=== PATIENT | female | born 1960 | race Caucasian/White ===

== ENCOUNTER 2020-01-04 15:00 | Observation (INO) | payer BC, SELFPAY ==
[2020-01-04] VITALS (11 sets, daily range): BP systolic 119–200; BP diastolic 83–109; PULSE 76–101; RESP 15–20; TEMP 36.1–36.6; O2SAT 93–97; BMI 37.1
--- NOTE | 2020-01-04 15:01 | XR_ITS ---
WS: [id number] PORTABLE CHEST HISTORY: Chest pain. COMPARISON: 11/13/2015 Curvilinear atelectasis at the medial RIGHT lung base. Atelectasis is probably compressive atelectasi s due to a large hiatal hernia. No pleural effusion or pneumothorax. Cardiac size: Mildly prominent cardiac silhouette. Mediastinum/Aorta: No mediastinal widening. Large hiatal hernia. No osseous abnormality seen. XR/XR chest 1V portable [id number] IMPRESSION: Large hiatal hernia causing partial compressive atelectasis medial RIGHT lower lung field.
--- NOTE | 2020-01-04 15:01 | ECG_ITS ---
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 Measurements Intervals [place] Rate: 101 P: 42 NM: 148 QRS: -29 QRSD: 101 T: 34 QT: 342 QTc: 443 Interpretive Statements SINUS TACHYCARDIA POSSIBLE ANTERIOR MYOCARDIAL INFARCTION [30 ms Q WAVE IN V3/V4, OR R < 0.2 mV IN V4], OF INDETERMINATE AGE INFERIOR MYOCARDIAL INFARCTION [40+ ms Q WAVE AND/OR ST/T ABNORMALITY IN II/aVF], OF INDETERMINATE AGE Compared to ECG 11/13/2015 15:03:50 Myocardial infarct finding now present Sinus rhythm no longer present Electronically Signed On 01-04-2020 16:55:44 CDT by Daljit Erazo M.D. [id number]
--- NOTE | 2020-01-04 15:48 | W.ED.EXTPRO ---
HPI - Extremity Problem General: Chief complaint: Extremity Injury, Upper Stated complaint: cp Time Seen by Provider: 01/04/20 15:37 Source: patient Mode of arrival: ambulatory Limitations: no limitations History of Present Illness: HPI Narrative: 59-year-old female states she has had left shoulder pain that started roughly 45 minutes ago. States it radiated to her left neck along with her left arm and her chest. States the pain was a pressure type pain she got real diaphoretic and short of breath and nausea. States the pain is just not letting up and she only has 1 out of 10 pain. She denies any history of heart disease. She is a diabetic along with high cholesterol and hypertension. She is not a smoker. Associated symptoms: Reports chest pain; Deny fever(s) or rash Review of Systems Const: Denies: fever(s), chills, body aches or change in appetite Eyes: Denies: blurry vision or eye discomfort ENMT: Denies: throat pain or dental pain Card: Reports: chest pain Resp: Reports: dyspnea GI: Reports: nausea : Denies: dysuria Musc: Denies: neck pain or back pain Skin/Breast: Denies: rash Neuro: Denies: headache(s) Psych: Denies: depression Winston/Lymph: Denies: easy bruising All/Imm: Denies: urticaria Physical Exam Const: COMMON NORMALS: no acute distress, patient oriented x3 and healthy appearing HENMT: COMMON NORMALS: normocephalic and atraumatic HEAD & SCALP: normocephalic and atraumatic Eye: COMMON NORMALS: Equal, round and reactive pupils present and EOMs intact bilaterally PUPIL: Yes Equal, round and reactive pupils present Neck/C-Spine: COMMON NORMALS: full ROM and supple Chest: COMMONS NORMALS: normal inspection of the chest and normal palpation of entire chest wall Resp: COMMON NORMALS: normal respiratory effort, No retractions, No use of accessory muscles and clear to auscultation bilaterally AUSCULTATION: clear to auscultation bilaterally Cardio: COMMON NORMALS: regular rate, regular rhythm and No murmurs present (Cardio) RATE: regular rate RHYTHM: regular rhythm GI: COMMON NORMALS: Normal to inspection, nondistended, normoactive bowel sounds present, Soft to palpation, non-tender and no masses PALPATION: Yes Soft to palpation Extremity: COMMON NORMALS: normal to inspection and full ROM Neuro: COMMON NORMALS: patient oriented x3, moves all extremities and no focal motor deficits Psych: COMMON NORMALS: mental status grossly normal, Normal thought process present and cooperative THOUGHT PROCESS: Normal thought process present Skin: COMMON NORMALS: no rashes or lesions noted and no wounds GENERAL SKIN EXAM: no rashes or lesions noted Course Vital Signs: Vital signs: Vital Signs Temperature 96.9 F L 01/04/20 15:06 Pulse Rate 90 01/04/20 17:09 Respiratory Rate 15 01/04/20 17:09 Blood Pressure 182/109 01/04/20 17:09 Pulse Oximetry 96 01/04/20 17:09 MDM - Extremity (Nontraumatic) MDM Narrative: Medical decision making narrative: Jessica presents with chest pain that is since resolved. She is also quite hypertensive as well given her labetalol and will give her another dose. Patient has multiple risk factors. Initial EKG and troponin are normal. I spoke to hospitalist and will admit for ACS rule out due to her risk factors. Lab Data: Labs: Lab Results 01/04/20 01/04/20 01/04/20 Range/Units 16:09 16:09 16:09 WBC 9.2 (4.0-10.0) 10^3/ uL RBC 5.13 (4.1-5.3) 10^6/u L Hgb 15.0 (11.5-15.3) g/dL Hct 47.1 H (37.0-47.0) % MCV 91.8 (81-99) fL MCH 29.2 (28.0-34.0) pg MCHC 31.8 (30.0-36.0) g/dL RDW 12.7 (12.1-15.1) % Plt Count 374 (130-400) 10^3/c mm MPV 10.5 H (7.4-10.4) fL Neut % (Auto) 69.7 % Lymph % (Auto) 19.8 % Kern % (Auto) 5.0 % Eos % (Auto) 4.6 % Baso % (Auto) 0.7 % Neut # (Auto) 6.4 (1.8-7.7) 10^3/u L Lymph # (Auto) 1.8 (0.8-4.8) 10^3/u L Kern # (Auto) 0.5 (0.2-0.9) 10^3/u L Eos # (Auto) 0.4 (0.0-0.8) 10^3/u L Baso # (Auto) 0.1 (0.0-0.1) 10^3/u L Nucleated RBC % (a uto) 0 % Nucleated RBCs # 0.0 /100WBC Sodium 139 (136-145) mmol/L Potassium 3.8 (3.5-5.1) mmol/L Chloride 98 (98-107) mmol/L Carbon Dioxide 24 (22-29) mmol/L Anion Gap 20.8 H (5-19) BUN 12 (6-20) mg/dL Creatinine 0.7 (0.5-0.9) mg/dL GFR Calculation 85.6 L (90-130) mL/min Glucose 311 H (65-115) mg/dL Calculated Osmolal ity 296 H (285-295) mOsm/k g Calcium 9.7 (8.5-10.5) mg/dL Total Bilirubin 0.3 (0.15-1.2) mg/dL AST 43 H (0-32) U/L ALT 38 H (0-33) U/L Alkaline Phosphata se 97 (35-105) IU/L Troponin T Baselin e 6 (0-10) ng/L Total Protein 7.8 (6.6-8.7) g/dL Albumin 4.3 (3.5-5.2) g/dL Globulin 3.5 (1.3-4.6) g/dL Imaging Data^: CXR: Radiologist's impression: [address] [address] XRay Report Signed Patient: Jessica Singh Unit #: [id number] : 1960 Age/Sex: 59 / F ADM Date: 01/04/20 Loc: ER Room/Bed: Attending Dr: Ordering Provider/Ordering MD: Huong Rosario MD Date of Service: 01/04/20 Procedure(s): XR chest 1V portable [id number] Accession Number(s): [id number] Report Number: [id number] WS: [id number] PORTABLE CHEST HISTORY: Chest pain. COMPARISON: 11/13/2015 Curvilinear atelectasis at the medial RIGHT lung base. Atelectasis is probably compressive atelectasis due to a large hiatal hernia. No pleural effusion or pneumothorax. Cardiac size: Mildly prominent cardiac silhouette. Mediastinum/Aorta: No mediastinal widening. Large hiatal hernia. No osseous abnormality seen. XR/XR chest 1V portable [id number] IMPRESSION: Large hiatal hernia causing partial compressive atelectasis medial RIGHT lower lung field. EKG Data^: EKG 1: Attestation: I personally reviewed and interpreted this EKG as follows: EKG interpretation date: 01/04/20 EKG interpretation time: 15:11 Interpretation: sinus tach hr [address] or t wave abnormalities qrs 101 qtc 400 Discharge Plan Discharge Patient Disposition: Admitted As Inpatient Clinical Impression: Chest pain, Hypertension Condition: Stable Referrals: Tavon Marin DO [Primary Care Provider] - Coding Level of Care Code ED Service Coordinator [facility] Facility for Chg Fwd Exam Comprehensive
[2020-01-04] MEDS: aspirin 81 mg Chew Tablet 324 MG PO (15:59)
[2020-01-04 16:23] LABS: Basophils # 0.1 10^3/uL (0.0-0.1); Basophils % 0.7 %; Eosinophils # 0.4 10^3/uL (0.0-0.8); Eosinophils % 4.6 %; Hematocrit 47.1 % (37.0-47.0); Lymphocytes # 1.8 10^3/uL (0.8-4.8); Lymphocytes % 19.8 %; Mean Corpuscular HGB Conc 31.8 g/dL (30.0-36.0); Mean Corpuscular Hemoglobin 29.2 pg (28.0-34.0); Mean Corpuscular Volume 91.8 fL (81-99); Mean Platelet Volume 10.5 fL (7.4-10.4); Monocytes # 0.5 10^3/uL (0.2-0.9); Neutrophils # 6.4 10^3/uL (1.8-7.7); Neutrophils % 69.7 %; Nucleated Red Blood Cells % 0 %; Platelet Count 374 10^3/cmm (130-400); Red Blood Count 5.13 10^6/uL (4.1-5.3); Red Cell Distribution Width 12.7 % (12.1-15.1); White Blood Count 9.2 10^3/uL (4.0-10.0)
[2020-01-04] MEDS: labetalol 5 mg/mL SDV 20mL 10 MG IVP ×2 (16:38→17:22)
[2020-01-04 16:40] LABS: Alanine Aminotransferase 38 U/L (0-33); Albumin Level 4.3 g/dL (3.5-5.2); Alkaline Phosphatase 97 IU/L (35-105); Anion Gap 20.8 (5-19); Aspartate Amino Transferase 43 U/L (0-32); Blood Urea Nitrogen 12 mg/dL (6-20); Calcium 9.7 mg/dL (8.5-10.5); Carbon Dioxide 24 mmol/L (22-29); Chloride 98 mmol/L (98-107); Globulin 3.5 g/dL (1.3-4.6); Glomerular Filtration Rate 85.6 mL/min (90-130); Glucose 311 mg/dL (65-115); Osmolality Calculated 296 mOsm/kg (285-295); Potassium 3.8 mmol/L (3.5-5.1); Sodium 139 mmol/L (136-145); Total Bilirubin 0.3 mg/dL (0.15-1.2); Total Protein 7.8 g/dL (6.6-8.7)
[2020-01-04 16:41] LABS: Troponin(5th) Baseline 6 ng/L (0-10)
--- NOTE | 2020-01-04 17:01 | ECG_ITS ---
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 Measurements Intervals [place] Rate: 71 P: 62 AK: 183 QRS: 0 QRSD: 118 T: 56 QT: 396 QTc: 431 Interpretive Statements SINUS RHYTHM MODERATE INTRAVENTRICULAR CONDUCTION DELAY [110+ ms QRS DURATION] Compared to ECG 01/04/2020 15:11:13 Intraventricular conduction delay now present Sinus tachycardia no longer present Myocardial infarct finding no longer present Electronically Signed On 01-06-2020 17:25:33 CDT by Mery Santos M.D. [id number]
--- NOTE | 2020-01-04 17:19 | PM.HP ---
Providers/Chief Complaint Primary Care Provider: Tavon Marin DO Chief Complaint: cp History of Present Illness Jessica Singh is a 59 year old female with past medical history of hypertension, hypothyroidism, anxiety, former smoker, type 2 diabetes mellitus presented to the ER today with complaining of central chest pain radiating to neck associated with nausea, diaphoresis which became better after coming to the ER and treatment with nitro. She complains of occasional shortness of breath on exertion. She denies any, cough, flulike symptoms complains of heartburn, orthopnea, PND, recent exposure to COVID-19, fevers, postnasal drip. She had similar episode 5 years ago at that time stress test was done and was deemed normal. Patient has a strong family history for coronary artery disease. Her father had a coronary artery bypass grafting times five and started having heart issues in his late 50s. Her mother has had three to four stents placed. Her brother has a pacemaker defibrillator and began having issues with his heart around age 45. There is no family history of stroke. On her mother's side, she has a maternal aunt and cousin who have had breast cancer. Hospital service was called in for admission for chest pain rule out. Review of Systems General: Reports: 10 or more systems reviewed and unremarkable except in HPI and below Const: Denies: fever(s), chills, body aches, change in appetite, malaise, night sweats, diaphoresis, change in sleep pattern, daytime sleepiness or snoring Eyes: Denies: change in vision, blurry vision, photophobia, eye discomfort or eye discharge ENMT: Denies: throat pain, enlarged tonsils, hoarseness, mouth pain, oral sores, dry mouth, tinnitus, nasal congestion or post nasal drip Card: Reports: chest pain and dyspnea on exertion; Denies: palpitations, irregular heart rhythm, edema, swelling of feet/ankles, lightheadedness, syncope, pre-syncope, orthopnea, leg pain with exertion or acrocyanosis Resp: Denies: dyspnea, productive cough, non-productive cough, wheezing, stridor, pain on inspiration, change in phlegm color, hemoptysis or chest congestion GI: Denies: abdominal pain, nausea, vomiting, hematemesis, coffee ground emesis, dysphagia, heartburn, diarrhea, constipation, bloating, GI cramping, change in bowel habits, pain on defecation, hematochezia or melena : Denies: flank pain, dysuria, urinary frequency, urinary urgency, urinary hesitancy, nocturia or hematuria Musc: Denies: neck pain, back pain, extremity pain, joint pain, joint swelling, joint redness, joint stiffness or limited range of motion Neuro: Denies: headache(s), numbness in extremities, weakness in extremities, sensory changes, lack of coordination, difficulty walking, frequent falls, dizziness, vertigo, confusion, Slurred speech present, difficulty communicating thoughts or seizure-like activity Psych: Denies: anxiety, depression, mood swings, panic attacks, hopelessness or irritability Endo: Denies: polyuria, polydipsia, tired all the time, cold intolerance, excessive sweating, flushing or heat intolerance Winston/Lymph: Denies: easy bruising or easy bleeding All/Imm: Denies: tongue swelling, facial swelling or acute wheezing Medications/Allergies Home Medications Medication Instructions Recorded Confirmed Last Taken Type amitriptyline 10 mg PO BID 01/04/20 01/04/20 01/04/20 History aspirin 81 mg PO DAILY 01/04/20 01/04/20 01/04/20 History atorvastatin 80 mg PO DAILY 01/04/20 01/04/20 Unknown History citalopram [Celexa] 40 mg PO DAILY 01/04/20 01/04/20 01/04/20 History dulaglutide [Trulicity] See Rx Instructions .ROUTE .COMPLEX 01/04/20 01/04/20 12/28/19 History levothyroxine 150 mcg PO DAILY 01/04/20 01/04/20 01/04/20 History lovastatin 40 mg PO DAILY 01/04/20 01/04/20 01/04/20 History metoprolol succinate 50 mg PO DAILY 01/04/20 01/04/20 01/04/20 History triamterene-hydrochlorothiazid 1 tab PO DAILY 01/04/20 01/04/20 01/04/20 History Allergies Allergy/AdvReac Type Severity Reaction Status Date / Time Penicillins Allergy Unknown Verified 01/04/20 16:14 Sulfa (Sulfonamide Allergy Unknown Verified 01/04/20 16:14 Antibiotics) antiobiotic Allergy Severe Unknown Uncoded 01/04/20 15:13 PFSH Acute PFSH: Medical History (Updated 01/04/20 @ 17:21 by Roosevelt Torres MD) Dyslipidemia Hiatal hernia Hypertension Hypothyroidism Surgical History (Updated 01/04/20 @ 17:21 by Roosevelt Torres MD) H/O: hysterectomy History of appendectomy Family History (Updated 01/04/20 @ 17:22 by Roosevelt Torres MD) Other CAD (coronary artery disease) Diabetes Hypertension Social History (Updated 01/04/20 @ 17:22 by Roosevelt Torres MD) Smoking and tobacco status: former smoker Alcohol intake: never Substance/Drug Use: never Housing: House Vitals/I&O/Wt Last Vital Signs Temp 96.9 F L 01/04/20 15:06 Pulse 90 01/04/20 17:09 Resp 15 01/04/20 17:09 BP 182/109 01/04/20 17:09 Pulse Ox 96 01/04/20 17:09 Weight last 48 hrs Weight 104.326 kg Physical Exam Narrative: EXAM NARRATIVE: General: No acute distress, AO x3 HEENT: PERRLA, pupils bilaterally equal and reactive Chest: Normal vesicular breath sounds, no added sounds, equal good air entry bilaterally CVS: S1-S2 regular, no murmurs, no tachycardia, no gallops, no rubs Abdomen: Soft, nontender, no organomegaly, bowel sounds present Neuro: No focal deficits, no facial deformity, AO x3, power 5/5 in all limbs Data : 01/04/20 16:09 01/04/20 16:09 A&P Assessment and plan (1) Hypertension: Status: Acute (2) Chest pain: Status: Acute Qualifiers: Chest pain type: unspecified Qualified Code(s): R07.9 - Chest pain, unspecified (3) Dyslipidemia: Status: Acute (4) Hypothyroidism: Status: Acute Additional A&P Information Chest pain: Patient has a typical history. Significant family history and personal history of hypertension, hypothyroidism, dyslipidemia and former smoker. Check lipid panel, TSH, HbA1c. Patient already given aspirin in the ER. Cycle troponins. Oxygen supplementation keeping saturation 92%. Nitroglycerin sublingual as needed. Continue with aspirin, statin for now. Continue with metoprolol. N.p.o. after midnight for stress test tomorrow morning. Echocardiogram for regional motion abnormality and EF. Hypertension: Hypertensive in the ER and given labetalol push. Goal blood pressure 140/90 mmHg. For now continue with home dose of metoprolol, triamterene hydrochlorothiazide. If required can go higher on the medications. Type 2 diabetes mellitus: Insulin sliding scale at moderate dose. Continue chronic medication like amitriptyline and Celexa. Full code. Cardiac carb consistent diet. N.p.o. after midnight Lovenox for DVT prophylaxis Attestations Medical Necessity Statement*: Under observation for less than 2 midnights for chest pain rule out Time Spent in Patient Care: Greater than 35 minutes (>than 50% of time spent in counselling and/or direct pt care on unit). Coding Level of Care Code Acute Foundation Drill Operator for Don Quinn Diagnoses Hypertension I10 Chest pain R07.9 Chest pain type: unspecified Dyslipidemia E78.5 Hypothyroidism E03.9
[2020-01-04 18:18] LABS: Iron 89 ug/dL (37-145); NT Pro B Type Natriuretic Pept 26 pg/mL (0-125); Percent Saturation 22.9 % (20-50); Thyroid Stimulating Hormone 11.27 uIU/mL (0.27-4.20); Total Iron Binding Capacity 387 mcg/dl; Unsaturated Iron Binding 298 ug/dL (112-347)
[2020-01-04 18:34] LABS: Amphetamines Screen Urine Negative (Negative); Barbiturates Screen Urine Negative (Negative); Benzodiazepines Screen Urine Negative (Negative); Cocaine Screen Urine Negative (Negative); Opiate Screen Urine Negative (Negative); PCP Screen Urine Negative (Negative); THC Screen Urine Negative (Negative)
[2020-01-04 18:37] LABS: Troponin 5 2HR Delta 0 ABS# (0-10)
--- NOTE | 2020-01-04 21:01 | ECG_ITS ---
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 Measurements Intervals [place] Rate: 71 P: 66 [place]: 177 QRS: 27 QRSD: 116 T: 63 QT: 417 QTc: 455 Interpretive Statements SINUS RHYTHM MODERATE INTRAVENTRICULAR CONDUCTION DELAY [110+ ms QRS DURATION] Compared to ECG 01/04/2020 18:00:46 No significant changes Electronically Signed On 01-06-2020 17:25:16 CDT by Mery Santos M.D. [id number]
--- NOTE | 2020-01-04 22:10 | ECG_ITS ---
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 Interpretive Statements NAME OF STUDY: LEXISCAN SESTAMIBI STRESS TEST INDICATION: Unstable Angina PROCEDURE: At the baseline, the blood pressure was 140/105 mmHg, oxygen saturation 93% with a heart rate of 64 bpm. The electrocardiogram showed normal sinus rhythm, normal axis with poor anterior R wave progression. The Lexiscan was infused over a period of 20 seconds. A total of 0.4 milligrams of Lexiscan was infused. The stress phase was continued for a total of 5 minutes. Heart rate at the end of the stress phase was 82 bpm, oxygen saturation 95% with a blood pressure of 169/95 mmHg. The EKG at the peak infusion revealed sinus rhythm with no significant ST-T wave changes. Sestamibi was injected 20 seconds after the Lexiscan infusion. Blood pressure at the end of the recovery phase was 157/92 mmHg, oxygen saturation 93% with a heart rate of 79 beats per minute. CONCLUSION: 1. No significant EKG changes with the LexiScan infusion. 2. No LexiScan induced chest pain or cardiac arrhythmia. 3. Normal blood pressure and heart rate response. 4. Sestamibi/sestamibi perfusion scan pending; see separate report. Electronically Signed On 01-05-2020 17:23:08 CDT by Mery Santos M.D. [id number]
[2020-01-04 22:33] LABS: Troponin 5 6HR Delta 0 ng/L (0-12)
[2020-01-04 22:58] LABS: Glucose Point of Care 144 mg/dL (70-110)
[2020-01-04] MEDS: enoxaparin 40 mg/0.4 mL Syringe SUBCUT (23:08)
[2020-01-04] MEDS: famotidine 20 mg/2 mL INJ IVP (23:08)
[2020-01-05] VITALS (10 sets, daily range): BP systolic 112–154; BP diastolic 72–98; PULSE 58–83; RESP 18; TEMP 36.4–36.8; O2SAT 93–96
[2020-01-05 05:23] LABS: Basophils # 0.1 10^3/uL (0.0-0.1); Basophils % 0.8 %; Eosinophils # 0.5 10^3/uL (0.0-0.8); Eosinophils % 5.8 %; Hematocrit 44.6 % (37.0-47.0); Lymphocytes # 2.4 10^3/uL (0.8-4.8); Lymphocytes % 31.6 %; Mean Corpuscular HGB Conc 31.4 g/dL (30.0-36.0); Mean Corpuscular Hemoglobin 28.9 pg (28.0-34.0); Mean Corpuscular Volume 92.1 fL (81-99); Mean Platelet Volume 10.5 fL (7.4-10.4); Monocytes # 0.5 10^3/uL (0.2-0.9); Monocytes % 6.9 %; Neutrophils # 4.2 10^3/uL (1.8-7.7); Neutrophils % 54.6 %; Nucleated Red Blood Cells % 0 %; Platelet Count 351 10^3/cmm (130-400); Red Blood Count 4.84 10^6/uL (4.1-5.3); Red Cell Distribution Width 12.9 % (12.1-15.1); White Blood Count 7.7 10^3/uL (4.0-10.0)
[2020-01-05 06:01] LABS: Alanine Aminotransferase 35 U/L (0-33); Albumin Level 4.1 g/dL (3.5-5.2); Alkaline Phosphatase 83 IU/L (35-105); Anion Gap 17.2 (5-19); Aspartate Amino Transferase 37 U/L (0-32); Blood Urea Nitrogen 11 mg/dL (6-20); Calcium 10.1 mg/dL (8.5-10.5); Carbon Dioxide 27 mmol/L (22-29); Chloride 100 mmol/L (98-107); Globulin 2.9 g/dL (1.3-4.6); Glomerular Filtration Rate 102.3 mL/min (90-130); Glucose 164 mg/dL (65-115); Osmolality Calculated 290 mOsm/kg (285-295); Potassium 4.2 mmol/L (3.5-5.1); Sodium 140 mmol/L (136-145); Total Bilirubin 0.3 mg/dL (0.15-1.2)
[2020-01-05 06:03] LABS: Estmated Average Glucose 206; Hemoglobin A1C 8.8 % (4.0-6.0)
[2020-01-05 06:07] LABS: Chol HDL Ratio 6.49 mg/dL (0.0-4.40); Cholesterol 240 mg/dL (0-200); HDL Cholesterol 37 mg/dL (60-100); LDL Cholesterol Calculated 147 mg/dL (50-129); Triglycerides 279 mg/dL (0-150); VLDL Cholestrol Calculation 56 mg/dL (0-30)
[2020-01-05 06:39] LABS: Glucose Point of Care 177 mg/dL (70-110)
--- NOTE | 2020-01-05 09:54 | PC.CHAP ---
Pastoral Care Encounter/Spiritual Assessment Type of Contact [] Declined needle valve operator visit [] Patient/Family/Request visit [] Outpatient visit [] Follow-up visit [] Physician referral [] Code/Alert [x Routine visit [] Staff referral [] Actively dying [x] Patient sleeping [] Family support [] [] Out of room [] Palliative care [] [] Receiving care in room [] Pre-surgical visit [] Trauma [] Long length of stay [] ICU visit [] Other: Relational/Emotional Strength [] Patient feels connected with others/family/visitors/staff [] Distress [] Loneliness/isolation [] Abandonment Spirituality of Patient [] Person of Tania [] Attends Buddhist of their Tania [] Believes in Prayer [] Reads Bible or Baptism materials [] There are Spiritual issues to be addressed Production Editor Interventions [] Prayer [] Active listening [] Non-anxious presence [] Spiritual/emotional support [] Crisis/trauma care [] Spiritual counseling [] Bereavement support [] Provided bereavement packet [] Provided Bible/devotional materials [] Provided toy/stuffed animal, coloring book to patient or family member [] Provided Communion [] Anointing/[place] [] Salvation [xx] Completed spiritual assessment [] Other: Impact on Illness or Injury [] Angry [] Fearful [] Anxious [] Often cries [] Exhaustion [] Unable to work [] Unable to attend nondenominational [] Unable to walk/stand [] Unable to read [] Unable to drive [] Unable to eat/drink [] Unable to sleep [] Unable to be with family [] Patient intubated [] Other: Summary Time spent with patient
[2020-01-05] MEDS: metoprolol succinate ER (24 HR) 50 mg Tablet PO (10:12)
[2020-01-05 11:43] LABS: Glucose Point of Care 148 mg/dL (70-110)
--- NOTE | 2020-01-05 12:14 | PC.NURSE ---
Patient down for stress test at this time.
--- NOTE | 2020-01-05 12:38 | SUR.PREOP ---
Patient reports no pain or discomfort prior to the start of the procedure.
[2020-01-05] MEDS: regadenoson 0.4 Mg/5 ml Syringe IVP (12:39)
[2020-01-05 16:05] LABS: Free T4 Free Thyroxine 1.04 ng/dL (0.82-1.77); T3 Free 2.2 PG/ML (2.0-4.4)
[2020-01-05 17:21] LABS: Glucose Point of Care 154 mg/dL (70-110)
--- NOTE | 2020-01-05 17:29 | USCV_ITS ---
Jessica Singh Age: 59 Gender: F : 1960 Exam Date: 01/05/2020 07:59 Ordering Phys: Roosevelt Torres MD Technologist: Dolores Stern Exam Location: [facility] [place] Indication: EF UA HTN BP: 127 / 85 HR: 65 Rhythm: Sinus Technical Quality: Adequate MEASUREMENTS (Male / Female) Normal Values 2D ECHO LV Diastolic Diameter PLAX 3.7 cm 4.2 - 5.9 / 3.9 - 5.3 cm LV Systolic Diameter PLAX 2.4 cm LV Chamber Size 3.4 cm IVS Diastolic Thickness 1.5 cm 0.6 - 1.0 / 0.6 - 0.9 cm IVS Systolic Thickness 1.8 cm LVPW Diastolic Thickness 1.0 cm 0.6 - 1.0 / 0.6 - 0.9 cm LVPW Systolic Thickness 1.6 cm RV Chamber Size 2.3 cm LVOT Diameter 2.0 cm LV Ejection Fraction 2D Teich 65.4 % LV Ejection Fraction MOD 2C 60.4 % LV Ejection Fraction 2C AL 61.2 % LA Diameter 2.2 cm LA Width 3.5 cm LA Height 4.4 cm RA Width 2.7 cm RA Height 4.3 cm Aorta at Sinotubular Diameter 3.1 cm M-MODE LV Diastolic Diameter MM 4.2 cm 4.2 - 5.9 / 3.9 - 5.3 cm LV Systolic Diameter MM 2.6 cm LV Ejection Fraction MM Teich 68.7 % IVS Diastolic Thickness MM 1.3 cm 0.6 - 1.0 / 0.6 - 0.9 cm IVS Systolic Thickness MM 1.5 cm LVPW Diastolic Thickness MM 1.1 cm 0.6 - 1.0 / 0.6 - 0.9 cm LVPW Systolic Thickness MM 1.5 cm RV Diastolic Diameter MM 1.7 cm Aortic Annulus Diameter 3.1 cm LA Ao Ratio MM 0.7 MV E Point Septal Separation 0.2 cm DOPPLER AV Peak Velocity 145.0 cm/s LVOT Peak Velocity 107.0 cm/s AV Area Cont Eq vti 2.3 cm squared AV Area Cont Eq pk 2.3 cm squared MV Area PHT 3.1 cm squared Mitral E to A Ratio 0.9 MV E' Velocity 8.0 cm/s Mitral E to MV E' Ratio 12.8 Mitral E to LV E' Lateral Ratio 12.0 Mitral E to LV E' Septal Ratio 13.8 TR Peak Velocity 179.0 cm/s TR Peak Gradient 12.8 mmHg TR Mean Velocity 136.1 cm/s TR Mean Gradient 8.2 mmHg TR Velocity Time Integral 53.9 cm TV Peak E Velocity 48.0 cm/s Right Atrial Pressure 5.0 mmHg Pulmonary Artery Systolic Pressu 17.8 mmHg PV Peak Velocity 57.0 cm/s RV Acceleration Time 0.1 s RV Ejection Time 0.3 s RV AcT/ET 0.4 FINDINGS Left Ventricle Normal left ventricular size, systolic function and wall thickness, with no regional wall motion abnormalities. Left ventricular ejection fraction is estimated at 60 %. Normal diastolic function. Right Ventricle Normal right ventricular size and systolic function. Right ventricular systolic pressure 17.8 mmHg. Right Atrium Normal right atrial size. Right atrial pressure estimated at 3 mmHg. Left Atrium Normal left atrial size. Mitral Valve Structurally normal mitral valve. Trace mitral valve regurgitation. Aortic Valve Aortic valve not well visualized. No aortic valve stenosis. No aortic valve regurgitation. Tricuspid Valve Tricuspid valve not well visualized. Trace tricuspid valve regurgitation. Pulmonic Valve Pulmonic valve not well visualized. Trace pulmonary valve regurgitation. Pericardium No pericardial effusion. Aorta Normal size aortic root and proximal ascending aorta. CONCLUSIONS 1. Normal left ventricular size, systolic function and wall thickness, with no regional wall motion abnormalities. Left ventricular ejection fraction is estimated at 60 %. Normal diastolic function. 2. Normal right ventricular size and systolic function. 3. Right atrial pressure estimated at 3 mmHg. 4. Normal pulmonary artery pressure. 5. No prior similar studies to compare. Mery Santos MD (Electronically Signed) Final Date: 05 January 2020 17:30 S
--- NOTE | 2020-01-05 17:33 | P.DS_ITS ---
Discharge Providers Date of Admission: 01/04/20 17:14 Date of Discharge: January 05, 2020 Attending Provider at Admission: Roosevelt Torres MD Attending Provider at Discharge: Roosevelt Torres MD Primary Care Provider: Tavon Marin DO Diagnoses at Discharge Discharge Diagnosis (1) Hypertension: Status: Acute (2) Chest pain: Status: Acute Qualifiers: Chest pain type: unspecified Qualified Code(s): R07.9 - Chest pain, unspecified (3) Dyslipidemia: Status: Acute (4) Hypothyroidism: Status: Acute Reason for Visit 2 Reason for Visit: cp Hospital Course Discharge Summary: Jessica Singh is a 59 year old female with past medical history of hypertension, hypothyroidism, anxiety, former smoker, type 2 diabetes mellitus presented to the ER today with complaining of central chest pain radiating to neck associated with nausea, diaphoresis which became better after coming to the ER and treatment with nitro. She complains of occasional shortness of breath on exertion. She denies any, cough, flulike symptoms complains of heartburn, orthopnea, PND, recent exposure to COVID-19, fevers, postnasal drip. She had similar episode 5 years ago at that time stress test was done and was deemed normal. Patient has a strong family history for coronary artery disease. Her father had a coronary artery bypass grafting times five and started having heart issues in his late 50s. Her mother has had three to four stents placed. Her brother has a pacemaker defibrillator and began having issues with his heart around age 45. There is no family history of stroke. On her mother's side, she has a maternal aunt and cousin who have had breast cancer. She was admitted to the hospital for chest pain rule out. She did not have repeat symptoms while hospitalized. Underwent stress test on January 05, 2020 which is negative for active ischemia. She underwent echocardiogram which showed an EF of 60% and normal diastolic dysfunction without any structural abnormality. Blood work showed deranged lipid panel along with elevated HbA1c. She states she is not eating statins as the tablets are big in size and she is not able to swallow. She was counseled and educated regarding importance of statins given her significant family history and personal history. She verbalized understanding. For her elevated HbA1c along with Trulicity sitagliptin has been added and she has allergy to metformin with diarrhea. TSH was elevated free T3 and T4 were normal limits so levothyroxine can continue the same dose. She is been discharged hemodynamically stable condition at her baseline. Physical Exam Narrative: EXAM NARRATIVE: General: No acute distress, AO x3 HEENT: PERRLA, pupils bilaterally equal and reactive Chest: Normal vesicular breath sounds, no added sounds, equal good air entry bilaterally CVS: S1-S2 regular, no murmurs, no tachycardia, no gallops, no rubs Abdomen: Soft, nontender, no organomegaly, bowel sounds present Neuro: No focal deficits, no facial deformity, AO x3, power 5/5 in all limbs Discharge Data Data Completed and Pending: Completed Studies During Hospitalization Category Date Time Status Sestamibi Stress Test Request Routi ne Exams 01/04/20 22:10 Completed XR chest 1V zulema ble [id number] Stat Exams 01/04/20 15:01 Completed NM jessenia perf SPECT r/s* [id number] Routin e Nuc Med 01/05/20 22:10 Completed CV echo complete* [id number] Routine Ultrasound 01/05/20 17:29 Completed Labs from last 24 hours 01/05/20 01/05/20 01/05/20 17:18 11:31 06:29 WBC RBC Hgb Hct MCV MCH MCHC RDW Plt Count MPV Neut % (Auto) Lymph % (Auto) Elbert % (Auto) Eos % (Auto) Baso % (Auto) Neut # (Auto) Lymph # (Auto) Elbert # (Auto) Eos # (Auto) Baso # (Auto) Nucleated RBC % (a uto) Nucleated RBCs # Sodium Potassium Chloride Carbon Dioxide Anion Gap BUN Creatinine GFR Calculation Glucose POC Glucose 154 148 177 Estimat Average Gl ucose Hemoglobin A1c Calculated Osmolal ity Calcium Iron TIBC % Saturation Unsat Iron Binding Total Bilirubin AST ALT Alkaline Phosphata se Troponin I 6 Hour Troponin I Hi Sens Del Troponin T 120 Min [place] Delta Troponin T NT-Pro-B Natriuret Pep Total Protein Albumin Globulin Triglycerides Cholesterol LDL Cholesterol, C alc Total VLDL Cholest cande HDL Cholesterol Cholesterol/HDL Ra david TSH Free T4 Free T3 Urine Opiates Scre en Ur Barbiturates Sc reen Ur Phencyclidine S crn Ur Amphetamines Sc reen U Benzodiazepines Scrn Urine Cocaine Scre en U Marijuana (THC) Screen 01/05/20 01/05/20 01/05/20 05:11 04:30 04:30 WBC 7.7 RBC 4.84 Hgb 14.0 Hct 44.6 MCV 92.1 MCH 28.9 MCHC 31.4 RDW 12.9 Plt Count 351 MPV 10.5 H Neut % (Auto) 54.6 Lymph % (Auto) 31.6 Elbert % (Auto) 6.9 Eos % (Auto) 5.8 Baso % (Auto) 0.8 Neut # (Auto) 4.2 Lymph # (Auto) 2.4 Elbert # (Auto) 0.5 Eos # (Auto) 0.5 Baso # (Auto) 0.1 Nucleated RBC % (a uto) 0 Nucleated RBCs # 0.0 Sodium 140 Potassium 4.2 Chloride 100 Carbon Dioxide 27 Anion Gap 17.2 BUN 11 Creatinine 0.6 GFR Calculation 102.3 Glucose 164 H POC Glucose Estimat Average Gl ucose Hemoglobin A1c Calculated Osmolal ity 290 Calcium 10.1 Iron TIBC % Saturation Unsat Iron Binding Total Bilirubin 0.3 AST 37 H ALT 35 H Alkaline Phosphata se 83 Troponin I 6 Hour Troponin I Hi Sens Del Troponin T 120 Min [place] Delta Troponin T NT-Pro-B Natriuret Pep Total Protein 7.0 Albumin 4.1 Globulin 2.9 Triglycerides Cholesterol LDL Cholesterol, C alc Total VLDL Cholest cande HDL Cholesterol Cholesterol/HDL Ra david TSH Free T4 1.04 Free T3 2.2 Urine Opiates Scre en Ur Barbiturates Sc reen Ur Phencyclidine S crn Ur Amphetamines Sc reen U Benzodiazepines Scrn Urine Cocaine Scre en U Marijuana (THC) Screen 01/05/20 01/05/20 01/04/20 04:30 04:30 22:55 WBC RBC Hgb Hct MCV MCH MCHC RDW Plt Count MPV Neut % (Auto) Lymph % (Auto) Elbert % (Auto) Eos % (Auto) Baso % (Auto) Neut # (Auto) Lymph # (Auto) Elbert # (Auto) Eos # (Auto) Baso # (Auto) Nucleated RBC % (a uto) Nucleated RBCs # Sodium Potassium Chloride Carbon Dioxide Anion Gap BUN Creatinine GFR Calculation Glucose POC Glucose 144 Estimat Average Gl ucose 206 Hemoglobin A1c 8.8 H Calculated Osmolal ity Calcium Iron TIBC % Saturation Unsat Iron Binding Total Bilirubin AST ALT Alkaline Phosphata se Troponin I 6 Hour Troponin I Hi Sens Del Troponin T 120 Min [place] Delta Troponin T NT-Pro-B Natriuret Pep Total Protein Albumin Globulin Triglycerides 279 H Cholesterol 240 H LDL Cholesterol, C alc 147 H Total VLDL Cholest cande 56 H HDL Cholesterol 37 L Cholesterol/HDL Ra david 6.49 H TSH Free T4 Free T3 Urine Opiates Scre en Ur Barbiturates Sc reen Ur Phencyclidine S crn Ur Amphetamines Sc reen U Benzodiazepines Scrn Urine Cocaine Scre en U Marijuana (THC) Screen 01/04/20 01/04/20 01/04/20 22:01 18:07 17:55 WBC RBC Hgb Hct MCV MCH MCHC RDW Plt Count MPV Neut % (Auto) Lymph % (Auto) Elbert % (Auto) Eos % (Auto) Baso % (Auto) Neut # (Auto) Lymph # (Auto) Elbert # (Auto) Eos # (Auto) Baso # (Auto) Nucleated RBC % (a uto) Nucleated RBCs # Sodium Potassium Chloride Carbon Dioxide Anion Gap BUN Creatinine GFR Calculation Glucose POC Glucose Estimat Average Gl ucose Hemoglobin A1c Calculated Osmolal ity Calcium Iron TIBC % Saturation Unsat Iron Binding Total Bilirubin AST ALT Alkaline Phosphata se Troponin I 6 Hour 6.00 Troponin I Hi Sens Del 0 Troponin T 120 Min [place] 6.00 Delta Troponin T 0 NT-Pro-B Natriuret Pep Total Protein Albumin Globulin Triglycerides Cholesterol LDL Cholesterol, C alc Total VLDL Cholest cande HDL Cholesterol Cholesterol/HDL Ra david TSH Free T4 Free T3 Urine Opiates Scre en Negative Ur Barbiturates Sc reen Negative Ur Phencyclidine S crn Negative Ur Amphetamines Sc reen Negative U Benzodiazepines Scrn Negative Urine Cocaine Scre en Negative U Marijuana (THC) Screen Negative 01/04/20 01/04/20 16:09 16:09 WBC RBC Hgb Hct MCV MCH MCHC RDW Plt Count MPV Neut % (Auto) Lymph % (Auto) Elbert % (Auto) Eos % (Auto) Baso % (Auto) Neut # (Auto) Lymph # (Auto) Elbert # (Auto) Eos # (Auto) Baso # (Auto) Nucleated RBC % (a uto) Nucleated RBCs # Sodium Potassium Chloride Carbon Dioxide Anion Gap BUN Creatinine GFR Calculation Glucose POC Glucose Estimat Average Gl ucose Hemoglobin A1c Calculated Osmolal ity Calcium Iron 89 TIBC 387 % Saturation 22.9 Unsat Iron Binding 298 Total Bilirubin AST ALT Alkaline Phosphata se Troponin I 6 Hour Troponin I Hi Sens Del Troponin T 120 Min [place] Delta Troponin T NT-Pro-B Natriuret Pep 26 Total Protein Albumin Globulin Triglycerides Cholesterol LDL Cholesterol, C alc Total VLDL Cholest cande HDL Cholesterol Cholesterol/HDL Ra david TSH 11.27 H Free T4 Free T3 Urine Opiates Scre en Ur Barbiturates Sc reen Ur Phencyclidine S crn Ur Amphetamines Sc reen U Benzodiazepines Scrn Urine Cocaine Scre en U Marijuana (THC) Screen Addt'l Data from Hospital Stay: [facility] 02/17/2020 IMPRESSIONS 1. Myocardial perfusion imaging is normal. 2. Overall left ventricular systolic function is normal without regional wall motion abnormalities. 3. The left ventricular ejection fraction is normal with a value of 74%. 4. This study suggests a low likelihood of angiographically significant coronary artery disease. Vitals: Last Vital Signs Temp 98.0 F 01/05/20 15:27 Pulse 68 01/05/20 15:27 Resp 18 01/05/20 15:27 BP 121/72 01/05/20 15:27 Pulse Ox 95 01/05/20 15:27 Discharge Plan Discharge Patient Disposition: Home, Self-Care Condition: Stable Prescriptions: New sitagliptin 100 mg tablet 100 mg PO DAILY Qty: 30 RF: 0 Continued atorvastatin 80 mg tablet 80 mg PO DAILY RF: 0 Celexa 40 mg tablet 40 mg PO DAILY RF: 0 aspirin 81 mg tablet,delayed release (DR/EC) 81 mg PO DAILY RF: 0 amitriptyline 10 mg tablet 10 mg PO BID RF: 0 levothyroxine 150 mcg tablet 150 mcg PO DAILY RF: 0 triamterene-hydrochlorothiazid 37.5-25 mg tablet 1 tab PO DAILY RF: 0 Trulicity 1.5 mg/0.5 mL pen injector See Rx Instructions .ROUTE .COMPLEX RF: 0 Changed metoprolol succinate 50 mg tablet extended release 24 hr 75 mg PO DAILY Qty: 45 RF: 0 Discontinued lovastatin 40 mg tablet 40 mg PO DAILY RF: 0 Discharge Orders: Discharge Order (Routine); Ordered 01/05/20 Ordered By: Roosevelt Torres Referrals: Tavon Marin DO [Primary Care Provider] - 1 month (PLEASE CALL FOR APPOINTMENT) Discharge Diet: Cardiac and Diabetic Discharge Activity: Resume usual activity Activity Restrictions/Additional Instructions: Please take your medications as prescribed. It is important for you take your statins because of worsening lipid panel. Dose of metoprolol has been increased to 75 mg daily. Sitagliptin has been added for your anti-diabetes medication list. Please avoid smoking. Please continue to do lifestyle modification as discussed. Please try to lose 10 pounds. Discharge Attestations Time Spent in Discharge Care*: greater than 30 min Specific Discharge Activities: Specific discharge activities: educating patient, discussing with binder caser/social workers/dc planners, documenting/other paperwork and evaluating patient/reviewing data Status at Discharge: Cognitive status at discharge: cognitively intact , Behavioral status at discharge: cooperative , Functional status at discharge: independent ambulation Overall status at discharge: patient is back to baseline Quality Metrics Clinical Quality Measures During this hospital stay, did patient experience: None Coding Level of Care Code Acute 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
--- NOTE | 2020-01-05 18:50 | PC.NURSE ---
Reviewed discharge with patient at this time. Patient verbalized understanding of discharge instructions including changes to medications and to call and make her follow up appointment with her primary care. IV removed intact. Patient is A&OX3. Respirations even and non-labored on room air. Patient wheel chaired to private car.
--- NOTE | 2020-01-05 22:10 | NMCV_ITS ---
NM jessenia perf SPECT r/s* [id number] Jessica Singh Age: 59 Gender: F : 1960 Exam Date: 01/05/2020 11:57 Ordering Phys: Roosevlet Torres MD Technologist: MILLA Loya Exam Location: [facility] Indications: Chest pain STRESS TEST [facility] for [facility] IMAGE PROTOCOL Rest/Stress 1 Lexiscan Day Radiopharmaceutical Dose (mCi) Administration Site Administered by Rest: Tc-99m 10.9 IV MILLA Colindres Sestamibi Stress:Tc-99m 33.0 IV MILLA Loya Sestamiemmanuel Rest: 05-Jan-2020 60 Discovery 630 Stress: 05-Jan-2020 45 Discovery 630 0.4mg Lexiscan. Images obtained in supine and prone position. SPECT RESULTS Technical Quality: Good Raw Data Analysis: Soft tissue attenuation Image Corrections: No attenuation or motion correction applied Summed Stress Score: 0 Summed Rest Score: 1 Summed Difference Score: 0 PERFUSION FINDINGS Small size perfusion abnormality of mild severity of apical septal wall on rest images with improved tracer uptake on stress images. This is suggestive of attenuation artifact. FUNCTIONAL RESULTS (calculated via Gated SPECT) Stress Image LV EF (%): 74 Stress EDV (mL):62 TID: 0.97 Stress ESV (mL):16 FUNCTIONAL FINDINGS: The left ventricle is normal in size. Transient Ischemia Dilatation of 0.97. There is normal left ventricular systolic function. The left ventricular ejection fraction is normal with a value of 74%. There is normal left ventricular wall thickening. IMPRESSIONS 1. Myocardial perfusion imaging is normal. 2. Overall left ventricular systolic function is normal without regional wall motion abnormalities. 3. The left ventricular ejection fraction is normal with a value of 74%. 4. This study suggests a low likelihood of angiographically significant coronary artery disease. Mery Santos MD (Electronically Signed) Final Date: 05 January 2020 17:05 S
== END 2020-01-05 18:50 | disposition home or self-care (01) ==
LOC: ER 17:13 → MEDSURG 18:46
PROVIDERS: Emergency Medicine; Admitting Provider Student in an Organized Health Care Education/Training Program; PCP Electrodiagnostic Medicine; Visit Provider Student in an Organized Health Care Education/Training Program
DX: R07.89 Other chest pain (principal); I10 Essential (primary) hypertension; E78.5 Hyperlipidemia, unspecified; E03.9 Hypothyroidism, unspecified; Z87.891 Personal history of nicotine dependence; E11.9 Type 2 diabetes mellitus without complications; Z79.4 Long term (current) use of insulin; Z82.49 Family history of ischemic heart disease and other diseases of the circulatory system; Z79.82 Long term (current) use of aspirin
CPT/HCPCS: 12345; 36415; 36416; 71045; 78452; 80053; 80061; 80306; 82962; 83036; 83540; 83550; 83880; 84439; 84443; 84481; 84484; 85025; 93005; 93017; 93306; 94664; 96372; 96374; 96375; 96376; 99284; 99285; A9500; G0378; J1650; J2785; J3490

== ENCOUNTER 2020-04-20 07:49 | Outpatient (CLI) | payer BC, SELFPAY ==
--- NOTE | 2020-04-20 08:38 | CT_ITS ---
WS: [id number] CT NECK WITH CONTRAST HISTORY: NECK MASS, hypothyroidism, LEFT neck pain. TECHNIQUE: Contiguous 5 mm axial images are performed through the neck with intravenous contrast. Sag ittal and coronal reformats are also submitted. All CT scans at [facility] use at least o ne of these dose optimization techniques: automated exposure control; mA and/or kV adjustment per pat ient size (includes targeted exams where dose is matched to clinical indication); or iterative recons truction. CONTRAST: CONTRAST: Omnipaque 300; 95 mL IV. DLP: 2639.9 mGycm COMPARISON: 10/21/2011 Nasopharynx, oropharynx, hypopharynx and larynx are unremarkable. No soft tissue masses or abnormal e nhancement. Torus tubarius and fossa of Rosenmuller and parapharyngeal fat are normal. No significant lymphadenopathy is identified. No significant thyroid tissue is identified. No history of thyroidectomy. May be due to marked atroph y. Parotid and submandibular glands are normal. Mild straightening of the normal cervical spine. Left-sided facet joint arthritis and foraminal narro wing. Most significant at C3-4 and C4-5. Visualized portions of the skull base demonstrate no abnormalities. Orbits and globes are within norm al limits. No soft tissue masses. Visualized paranasal sinuses and mastoid air cells are normal. Lung apices are clear. CT/CT neck w con* [id number] IMPRESSION: 1. Normal neck CT. No neck mass or adenopathy. 2. LEFT facet joint arthritis is moderate at C3-4 and C4-5.
[2020-04-20] MEDS: iohexol 300 mg/mL 100 mL Btl IV (09:07)
== END 2020-04-20 07:50 | disposition home or self-care (01) ==
LOC: RADWPI 07:56
PROVIDERS: PCP Electrodiagnostic Medicine; Visit Provider Electrodiagnostic Medicine
DX: R22.1 Localized swelling, mass and lump, neck (principal); E78.5 Hyperlipidemia, unspecified; E11.9 Type 2 diabetes mellitus without complications; E03.9 Hypothyroidism, unspecified; M47.812 Spondylosis without myelopathy or radiculopathy, cervical region
CPT/HCPCS: 70491; Q9967

== ENCOUNTER 2020-07-02 11:22 | Emergency (ER) | payer BC, SELFPAY ==
[2020-07-02 11:24] VITALS: BP 127/78; PULSE 105; RESP 20; TEMP 35.9; O2SAT 87; BMI 33.9
--- NOTE | 2020-07-02 11:55 | XRR_ITS ---
PROCEDURE INFORMATION: Exam: XR Chest, 1 View Exam date and time: 07/02/2020 12:27 PM Age: 59 years old Clinical indication: Cough and shortness of breath; Additional info: Cough, SOB, hypoxia TECHNIQUE: Imaging protocol: XR of the chest Views: 1 view. COMPARISON: CR XR chest 1V portable [id number] 01/04/2020 3:27 PM FINDINGS: Lungs: There is right basilar atelectasis. The left lung is clear. Pleural space: Unremarkable. No pleural effusion. No pneumothorax. Heart/Mediastinum: There is a large hiatal hernia. Heart is not enlarged for the AP projection. Bones/joints: Unremarkable. XR/XR chest 1V portable [id number] IMPRESSION: 1. Large hiatal hernia. 2. Right basilar atelectasis.
--- NOTE | 2020-07-02 12:01 | W.ED.COVID ---
HPI - COVID General: Chief Complaint: COVID symptoms Stated Complaint: COVID SYMPTOMS, TESTED NEGATIVE Time Seen by Provider: 07/02/20 11:27 Source: patient Mode of arrival: ambulatory Limitations: no limitations Triage information: Has fever, cough or shortness of breath. Exposure to COVID + person last 14 days History of Present Illness: HPI Narrative: Patient is a 59-year-old female with a history of hypertension and diabetes mellitus who presents to the emergency department with a 4-day history of fevers, body aches, cough, shortness of breath. Her highest temperature at home has been 102 ?F. She has a pulse oximeter at home and has been checking her oxygen levels and it has gotten as low as 79. She had a rapid test done yesterday which was negative but she still feels pretty bad so she is here to be seen. In triage her oxygen saturations were 87% on room air. MD complaint: has COVID symptoms Prior covid testing: yes, results known Prior testing date: 07/01/20 COVID 19 common symptoms: positive fever(s), chills, cough, non-productive cough, dyspnea, fatigue, body aches and nasal congestion; negative productive cough, headache(s), loss of sense of smell and/or taste, throat pain, nausea, vomiting or diarrhea COVID 19 other sytmptoms: positive requiring oxygen; negative chest pressure, chest pain, pleuritic pain, requiring more oxygen, respiratory distress, cyanosis, lethargy or confusion Onset (ago): day(s) (4) Severity: moderate Pertinent comorbid conditions: diabetes, hypertension and obesity Treatment prior to arrival: acetaminophen and ibuprofen COVID Results: SARS-CoV-2 Antigen (Rapid) Negative (Negative) 07/02/20 12:20 07/02/20 Nasal/Oral Coronavirus 2019 PCR Pending 07/02/20 12:20 07/02/20 Review of Systems General: Reports: 10 or more systems reviewed and unremarkable except in HPI and below Const: Reports: fever(s), chills, body aches and fatigue Eyes: Denies: change in vision or blurry vision ENMT: Reports: nasal congestion; Denies: throat pain Card: Denies: chest pain Resp: Reports: dyspnea and non-productive cough; Denies: productive cough GI: Denies: nausea, vomiting or diarrhea : Denies: flank pain, difficulty voiding, dysuria, urinary frequency, urinary urgency or urinary hesitancy Musc: Denies: neck pain, back pain or extremity swelling Skin/Breast: Denies: rash, pruritus or erythema Neuro: Denies: headache(s) or confusion Endo: Denies: polyuria, polydipsia or tired all the time PFSH ED PFSH: Medical History (Updated 07/02/20 @ 17:35 by Jeremy Baugh MD, [facility] [place] Dyslipidemia Hiatal hernia Hypertension Hypothyroidism Hypoxia Surgical History H/O: hysterectomy History of appendectomy Family History (Reviewed 07/02/20 @ 12:06 by Jeremy Baugh MD, [facility] [facility] [place] Other CAD (coronary artery disease) Diabetes Hypertension Social History (Reviewed 07/02/20 @ 12:06 by Jeremy Baugh MD, [facility] [place] Smoking and tobacco status: former smoker Alcohol intake: never Housing: House Physical Exam Const: COMMON NORMALS: no acute distress, average body habitus, patient oriented x3, no limitations, healthy appearing, alert and well nourished HENMT: COMMON NORMALS: normocephalic, atraumatic and moist oral mucous membranes HEAD & SCALP: normocephalic and atraumatic Eye: COMMON NORMALS: Equal, round and reactive pupils present, EOMs intact bilaterally, conjunctivae normal and no scleral icterus CONJUNCTIVA: Yes conjunctivae normal PUPIL: Yes Equal, round and reactive pupils present Neck/C-Spine: COMMON NORMALS: no meningeal signs and no JVD Resp: COMMON NORMALS: normal respiratory effort, No retractions, No use of accessory muscles, clear to auscultation bilaterally and percussion normal AUSCULTATION: clear to auscultation bilaterally PERCUSSION: percussion normal Cardio: COMMON NORMALS: no JVD, regular rhythm, S1 normal heart sound present, S2 normal heart sound present, No gallops present (Cardio), No clicks present (Cardio), No murmurs present (Cardio), No rub (Cardio) and Peripheral pulses 2+ throughout RATE: tachycardic RHYTHM: regular rhythm HEART SOUNDS: S1 normal heart sound present and S2 normal heart sound present PERIPHERAL PULSES: Peripheral pulses 2+ throughout GI: COMMON NORMALS: Normal to inspection, nondistended, normoactive bowel sounds present, Soft to palpation, non-tender, No hepatosplenomegaly present, no masses and no bruits PALPATION: Yes Soft to palpation and Yes No hepatosplenomegaly present Extremity: COMMON NORMALS: normal to inspection, full ROM, capillary refill normal, no calf tenderness and no pedal edema Neuro: COMMON NORMALS: patient oriented x3 SENSORIUM/ORIENTATION: Yes alert MENINGEAL SIGNS: Yes no meningeal signs Skin: COMMON NORMALS: no rashes or lesions noted, no wounds, turgor normal, no jaundice, no petechiae and no mottling GENERAL SKIN EXAM: no rashes or lesions noted and turgor normal Course Vital Signs: Vital signs: Vital Signs Temperature 96.6 F L 07/02/20 11:24 Pulse Rate 92 07/02/20 18:03 Respiratory Rate 17 07/02/20 18:03 Blood Pressure 94/77 07/02/20 18:03 Pulse Oximetry 17 L 07/02/20 18:03 MDM - COVID MDM Narrative: Medical decision making narrative: 59-year-old female patient who presented to the emergency department with cough, hypoxia, shortness of breath. Clinically she appears to have COVID-19 pneumonia but her rapid test came back negative. The PCR Covid test was sent out. She was hypoxic in the emergency department with her saturations in the high 80s. She did feel much better on 2 L of oxygen. She was discharged home with home oxygen pending her PCR test. She is advised to self isolate, follow-up with her primary care provider, and to definitely return if she has any worsening of her symptoms. On a CTA of her chest there was an incidental finding of a thoracic aortic aneurysm which is not big enough to warrant intervention at this time. She is to have that followed up with her primary care provider and to be referred to a vascular surgeon. Medical Records: Attestation: I reviewed the patient's medical records. Lab Data: Attestation: I reviewed the patient's lab results. Labs: Lab Results 07/02/20 07/02/20 07/02/20 Range/Units 12:10 12:10 12:10 WBC 9.6 (4.0-10.0) 10^3/ uL RBC 4.91 (4.1-5.3) 10^6/u L Hgb 14.1 (11.5-15.3) g/dL Hct 43.8 (37.0-47.0) % MCV 89.2 (81-99) fL MCH 28.7 (28.0-34.0) pg MCHC 32.2 (30.0-36.0) g/dL RDW 12.8 (12.1-15.1) % Plt Count 242 (130-400) 10^3/c mm MPV 11.2 H (7.4-10.4) fL Neut % (Auto) 83.2 % Lymph % (Auto) 12.0 % Vermilion % (Auto) 4.3 % Eos % (Auto) 0.0 % Baso % (Auto) 0.2 % Neut # (Auto) 7.98 H (1.8-7.7) 10^3/u L Lymph # (Auto) 1.2 (0.8-4.8) 10^3/u L Vermilion # (Auto) 0.4 (0.2-0.9) 10^3/u L Eos # (Auto) 0.0 (0.0-0.8) 10^3/u L Baso # (Auto) 0.0 (0.0-0.1) 10^3/u L Nucleated RBC % (a uto) 0 % Nucleated RBCs # 0.0 /100WBC D-Dimer (0-0.59) ug/mIFE U Sodium 135 L (136-145) mmol/L Potassium 3.5 (3.5-5.1) mmol/L Chloride 91 L (98-107) mmol/L Carbon Dioxide 31 H (22-29) mmol/L Anion Gap 16.5 (5-19) BUN 9 (6-20) mg/dL Creatinine 0.7 (0.5-0.9) mg/dL GFR Calculation 85.6 L (90-130) mL/min Glucose 208 H (65-115) mg/dL Calculated Osmolal ity 285 (285-295) mOsm/k g Lactic Acid 1.7 (0.5-2.2) mmol/L Calcium 8.4 L (8.5-10.5) mg/dL Total Bilirubin 0.7 (0.15-1.2) mg/dL AST 33 H (0-32) U/L ALT 26 (0-33) U/L Alkaline Phosphata se 81 (35-105) IU/L Creatine Kinase 77 (26-192) U/L Troponin T Gen 5 n g/L (0-10) ng/L C-Reactive Protein 123.2 H (0.0-4.9) mg/L Total Protein 6.7 (6.6-8.7) g/dL Albumin 3.7 (3.5-5.2) g/dL Globulin 3.0 (1.3-4.6) g/dL Procalcitonin 0.12 (0-0.5) ng/mL Influenza Type A A g (Negative) Influenza Type B A g (Negative) SARS-CoV-2 Ag (Rap id) (Negative) 07/02/20 07/02/20 07/02/20 Range/Units 12:10 12:10 12:10 WBC (4.0-10.0) 10^3/ uL RBC (4.1-5.3) 10^6/u L Hgb (11.5-15.3) g/dL Hct (37.0-47.0) % MCV (81-99) fL MCH (28.0-34.0) pg MCHC (30.0-36.0) g/dL RDW (12.1-15.1) % Plt Count (130-400) 10^3/c mm MPV (7.4-10.4) fL Neut % (Auto) % Lymph % (Auto) % Vermilion % (Auto) % Eos % (Auto) % Baso % (Auto) % Neut # (Auto) (1.8-7.7) 10^3/u L Lymph # (Auto) (0.8-4.8) 10^3/u L Vermilion # (Auto) (0.2-0.9) 10^3/u L Eos # (Auto) (0.0-0.8) 10^3/u L Baso # (Auto) (0.0-0.1) 10^3/u L Nucleated RBC % (a uto) % Nucleated RBCs # /100WBC D-Dimer 0.71 H (0-0.59) ug/mIFE U Sodium (136-145) mmol/L Potassium (3.5-5.1) mmol/L Chloride (98-107) mmol/L Carbon Dioxide (22-29) mmol/L Anion Gap (5-19) BUN (6-20) mg/dL Creatinine (0.5-0.9) mg/dL GFR Calculation (90-130) mL/min Glucose (65-115) mg/dL Calculated Osmolal ity (285-295) mOsm/k g Lactic Acid (0.5-2.2) mmol/L Calcium (8.5-10.5) mg/dL Total Bilirubin (0.15-1.2) mg/dL AST (0-32) U/L ALT (0-33) U/L Alkaline Phosphata se (35-105) IU/L Creatine Kinase (26-192) U/L Troponin T Gen 5 n g/L 10 (0-10) ng/L C-Reactive Protein (0.0-4.9) mg/L Total Protein (6.6-8.7) g/dL Albumin (3.5-5.2) g/dL Globulin (1.3-4.6) g/dL Procalcitonin (0-0.5) ng/mL Influenza Type A A g Negative (Negative) Influenza Type B A g Negative (Negative) SARS-CoV-2 Ag (Rap id) (Negative) 07/02/20 Range/Units 12:20 WBC (4.0-10.0) 10^3/ uL RBC (4.1-5.3) 10^6/u L Hgb (11.5-15.3) g/dL Hct (37.0-47.0) % MCV (81-99) fL MCH (28.0-34.0) pg MCHC (30.0-36.0) g/dL RDW (12.1-15.1) % Plt Count (130-400) 10^3/c mm MPV (7.4-10.4) fL Neut % (Auto) % Lymph % (Auto) % Vermilion % (Auto) % Eos % (Auto) % Baso % (Auto) % Neut # (Auto) (1.8-7.7) 10^3/u L Lymph # (Auto) (0.8-4.8) 10^3/u L Vermilion # (Auto) (0.2-0.9) 10^3/u L Eos # (Auto) (0.0-0.8) 10^3/u L Baso # (Auto) (0.0-0.1) 10^3/u L Nucleated RBC % (a uto) % Nucleated RBCs # /100WBC D-Dimer (0-0.59) ug/mIFE U Sodium (136-145) mmol/L Potassium (3.5-5.1) mmol/L Chloride (98-107) mmol/L Carbon Dioxide (22-29) mmol/L Anion Gap (5-19) BUN (6-20) mg/dL Creatinine (0.5-0.9) mg/dL GFR Calculation (90-130) mL/min Glucose (65-115) mg/dL Calculated Osmolal ity (285-295) mOsm/k g Lactic Acid (0.5-2.2) mmol/L Calcium (8.5-10.5) mg/dL Total Bilirubin (0.15-1.2) mg/dL AST (0-32) U/L ALT (0-33) U/L Alkaline Phosphata se (35-105) IU/L Creatine Kinase (26-192) U/L Troponin T Gen 5 n g/L (0-10) ng/L C-Reactive Protein (0.0-4.9) mg/L Total Protein (6.6-8.7) g/dL Albumin (3.5-5.2) g/dL Globulin (1.3-4.6) g/dL Procalcitonin (0-0.5) ng/mL Influenza Type A A g (Negative) Influenza Type B A g (Negative) SARS-CoV-2 Ag (Rap id) Negative (Negative) Imaging Data: CXR: Attestation: I personally reviewed and interpreted this imaging study as follows: Radiologist's impression: [address] [address] XRay Report Signed Patient: Jessica Singh #: [id number] : 1Acct#:[id number] Age/Sex: 59 / FADM Date: 07/02/20 Loc: ERRoom/Bed: Attending Dr: Ordering Provider/Ordering MD: Jeremy Baugh MD, [facility] [facility] [place] of Service: 07/02/20 Procedure(s): XR chest 1V portable 15054 Accession Number(s): [id number] Report Number: [id number] PROCEDURE INFORMATION: Exam: XR Chest, 1 View Exam date and time: 07/02/2020 12:27 PM Age: 59 years old Clinical indication: Cough and shortness of breath; Additional info: Cough, SOB, hypoxia TECHNIQUE: Imaging protocol: XR of the chest Views: 1 view. COMPARISON: CR XR chest 1V portable [id number] 01/04/2020 3:27 PM FINDINGS: Lungs: There is right basilar atelectasis. The left lung is clear. Pleural space: Unremarkable. No pleural effusion. No pneumothorax. Heart/Mediastinum: There is a large hiatal hernia. Heart is not enlarged for the AP projection. Bones/joints: Unremarkable. XR/XR chest 1V portable [id number] IMPRESSION: 1. Large hiatal hernia. 2. Right basilar atelectasis. Dictated By:Jair Hutchinson Signed By:Jair HutchinsonSigncee Date/Time:07/02/20 1311 DD/ 1309 CTA Chest: Radiologist's impression: [address] [address] [address] Scan Report Signed Patient: Jessica Singh #: [id number] : 1960cct#:[id number] Age/Sex: 59 / FADM Date: 07/02/20 Loc: ERRoom/Bed: Attending Dr: Ordering Provider/Ordering MD: Jeremy Baugh MD, [facility] [place] Date of Service: 07/02/20 Procedure(s): CT angio chest PE protcl [id number] Accession Number(s): [id number] Report Number: [id number] PROCEDURE INFORMATION: Exam: CT Angiography Chest With Contrast Exam date and time: 07/02/2020 2:42 PM Age: 59 years old Clinical indication: Cough and shortness of breath; Additional info: Hypoxia, tachycardia TECHNIQUE: Imaging protocol: Computed tomographic angiography of the chest with intravenous contrast. 3D rendering (Not supervised by radiologist): MIP and/or 3D reconstructed images were created by the technologist. Radiation optimization: All CT scans at this facility use at least one of these dose optimization techniques: automated exposure control; mA and/or kV adjustment per patient size (includes targeted exams where dose is matched to clinical indication); or iterative reconstruction. Contrast material: OMNIPAQUE 350; Contrast volume: 74 ml; Contrast route: INTRAVENOUS (IV); COMPARISON: CR (CHEST, ) 07/02/2020 12:30 PM RADIATION DOSE METRICS: Total DLP (mGy-cm): 558.24 FINDINGS: Pulmonary arteries: There is no pulmonary embolus. Aorta: There is 4.3 cm aneurysmal dilatation of the ascending thoracic aorta without dissection. Lungs: Multifocal ground-glass and interstitial opacities are noted in the lungs compatible with pneumonitis including COVID-19 pneumonia versus edema. More dense bibasilar opacities are noted and some of this density is due to compressive atelectasis from the large hiatal hernia however some of the density may reflect more confluent infiltrates. Pleural space: Unremarkable. No pneumothorax. No pleural effusion. Heart: The heart is enlarged. Mediastinal space: A large hiatal hernia is present. Lymph nodes: Unremarkable. No enlarged lymph nodes. Liver: There is a diffuse decrease in hepatic parenchymal density, consistent with fatty infiltration. Bones/joints: Unremarkable. No acute fracture. Soft tissues: Unremarkable. Other findings: There is no evidence of intestinal perforation or obstruction. CT/CT angio chest PE protcl [id number] IMPRESSION: 1. There is no pulmonary embolus. 2. There is 4.3 cm aneurysmal dilatation of the ascending thoracic aorta without dissection. 3. Multifocal ground-glass and interstitial opacities are noted in the lungs compatible with pneumonitis including COVID-19 pneumonia versus edema. Probable component compressive atelectasis in the lung bases secondary to large hiatal hernia. Radiation Dose CTDIVOL = (mGy): DLP = 558.24 (mGy-cm) Dictated By:Cathie Cortez Signed By:Robert Cortez Date/Time:07/02/20 155 DD/ 53 COVID Results: SARS-CoV-2 Antigen (Rapid) Negative (Negative) 07/02/20 12:20 07/02/20 Nasal/Oral Coronavirus 2019 PCR Pending 07/02/20 12:20 07/02/20 Discharge Plan Discharge Patient Disposition: Home Clinical Impression: Hypoxia, Suspected severe acute respiratory syndrome coronavirus 2 (SARS-CoV-2) infection, Viral pneumonia Aneurysm, thoracic aortic Qualifiers: Presence of rupture: without rupture Qualified Code(s): I71.2 - Thoracic aortic aneurysm, without rupture Condition: Stable Prescriptions: Continued atorvastatin 80 mg tablet 80 mg PO DAILY RF: 0 Celexa 40 mg tablet 40 mg PO DAILY RF: 0 aspirin 81 mg tablet,delayed release (DR/EC) 81 mg PO DAILY RF: 0 amitriptyline 10 mg tablet 10 mg PO BID RF: 0 levothyroxine 150 mcg tablet 150 mcg PO DAILY RF: 0 triamterene-hydrochlorothiazid 37.5-25 mg tablet 1 tab PO DAILY RF: 0 Trulicity 1.5 mg/0.5 mL pen injector See Rx Instructions .ROUTE .COMPLEX RF: 0 sitagliptin 100 mg tablet 100 mg PO DAILY Qty: 30 RF: 0 metoprolol succinate 50 mg tablet extended release 24 hr 75 mg PO DAILY Qty: 45 RF: 0 Discharge Orders: Discharge ED (Routine); Ordered 07/02/20 Ordered By: Jeremy Baugh Other Ambulatory Orders: DME: Oxygen (Order) Location: None Selected Ordered By: Jeremy Baugh Referrals: Tavon Marin DO [Primary Care Provider] - 1-3 days Discharge Diet: Usual diet Discharge Activity: Increase activity as tolerated Patient Instructions: Viral Pneumonia (ED), Thoracic Aortic Aneurysm (ED), Hypoxia (ED) Activity Restrictions/Additional Instructions: Return for any new or worsening symptoms. Use the oxygen as needed to keep your oxygen saturation above 92%. If your symptoms worsen please return for evaluation. If you have any concerns whatsoever please return for evaluation. Follow-up with your primary care provider within 3 days. You will be contacted with the results of your Covid PCR test. You need to self isolate for at least 10 days. Coding Level of Care Code ED Tempering Oven Operator for Don Fwd Exam Comprehensive
[2020-07-02 12:28] VITALS: BP 114/74; PULSE 88; RESP 18; O2SAT 100; O2SAT 99
[2020-07-02 12:48] LABS: Basophils % 0.2 %; Hematocrit 43.8 % (37.0-47.0); Hemoglobin 14.1 g/dL (11.5-15.3); Lymphocytes # 1.2 10^3/uL (0.8-4.8); Mean Corpuscular HGB Conc 32.2 g/dL (30.0-36.0); Mean Corpuscular Hemoglobin 28.7 pg (28.0-34.0); Mean Corpuscular Volume 89.2 fL (81-99); Mean Platelet Volume 11.2 fL (7.4-10.4); Monocytes # 0.4 10^3/uL (0.2-0.9); Monocytes % 4.3 %; Neutrophils # 7.98 10^3/uL (1.8-7.7); Neutrophils % 83.2 %; Nucleated Red Blood Cells % 0 %; Platelet Count 242 10^3/cmm (130-400); Red Blood Count 4.91 10^6/uL (4.1-5.3); Red Cell Distribution Width 12.8 % (12.1-15.1); White Blood Count 9.6 10^3/uL (4.0-10.0)
[2020-07-02 13:08] LABS: D Dimer 0.71 ug/mIFEU (0-0.59)
[2020-07-02 13:16] LABS: Lactic Sepsis W/Reflex 1.7 mmol/L (0.5-2.2)
[2020-07-02 13:17] LABS: Troponin T (5th) Once 10 ng/L (0-10)
[2020-07-02 13:21] LABS: SARS Covid-2 Antigen Negative (Negative)
[2020-07-02 13:23] LABS: Procalcitonin 0.12 ng/mL (0-0.5)
[2020-07-02 13:34] LABS: Alanine Aminotransferase 26 U/L (0-33); Albumin Level 3.7 g/dL (3.5-5.2); Alkaline Phosphatase 81 IU/L (35-105); Blood Urea Nitrogen 9 mg/dL (6-20); C Reactive Protein 123.2 mg/L (0.0-4.9); Calcium 8.4 mg/dL (8.5-10.5); Carbon Dioxide 31 mmol/L (22-29); Chloride 91 mmol/L (98-107); Creatine Phosphokinase 77 U/L (26-192); Glomerular Filtration Rate 85.6 mL/min (90-130); Glucose 208 mg/dL (65-115); Osmolality Calculated 285 mOsm/kg (285-295); Sodium 135 mmol/L (136-145); Total Bilirubin 0.7 mg/dL (0.15-1.2); Total Protein 6.7 g/dL (6.6-8.7)
[2020-07-02 13:37] LABS: Anion Gap 16.5 (5-19); Aspartate Amino Transferase 33 U/L (0-32); Potassium 3.5 mmol/L (3.5-5.1)
[2020-07-02 13:38] LABS: Influenza A by IFA Negative (Negative); Influenza B by IFA Negative (Negative)
--- NOTE | 2020-07-02 13:45 | CTR_ITS ---
PROCEDURE INFORMATION: Exam: CT Angiography Chest With Contrast Exam date and time: 07/02/2020 2:42 PM Age: 59 years old Clinical indication: Cough and shortness of breath; Additional info: Hypoxia, tachycardia TECHNIQUE: Imaging protocol: Computed tomographic angiography of the chest with intravenous contrast. 3D rendering (Not supervised by radiologist): MIP and/or 3D reconstructed images were created by the technologist. Radiation optimization: All CT scans at this facility use at least one of these dose optimization techniques: automated exposure control; mA and/or kV adjustment per patient size (includes targeted exams where dose is matched to clinical indication); or iterative reconstruction. Contrast material: OMNIPAQUE 350; Contrast volume: 74 ml; Contrast route: INTRAVENOUS (IV); COMPARISON: CR (CHEST, ) 07/02/2020 12:30 PM RADIATION DOSE METRICS: Total DLP (mGy-cm): 558.24 FINDINGS: Pulmonary arteries: There is no pulmonary embolus. Aorta: There is 4.3 cm aneurysmal dilatation of the ascending thoracic aorta without dissection. Lungs: Multifocal ground-glass and interstitial opacities are noted in the lungs compatible with pneumonitis including COVID-19 pneumonia versus edema. More dense bibasilar opacities are noted and some of this density is due to compressive atelectasis from the large hiatal hernia however some of the density may reflect more confluent infiltrates. Pleural space: Unremarkable. No pneumothorax. No pleural effusion. Heart: The heart is enlarged. Mediastinal space: A large hiatal hernia is present. Lymph nodes: Unremarkable. No enlarged lymph nodes. Liver: There is a diffuse decrease in hepatic parenchymal density, consistent with fatty infiltration. Bones/joints: Unremarkable. No acute fracture. Soft tissues: Unremarkable. Other findings: There is no evidence of intestinal perforation or obstruction. CT/CT angio chest PE protcl [id number] IMPRESSION: 1. There is no pulmonary embolus. 2. There is 4.3 cm aneurysmal dilatation of the ascending thoracic aorta without dissection. 3. Multifocal ground-glass and interstitial opacities are noted in the lungs compatible with pneumonitis including COVID-19 pneumonia versus edema. Probable component compressive atelectasis in the lung bases secondary to large hiatal hernia. Radiation Dose CTDIVOL = (mGy): DLP = 558.24 (mGy-cm)
[2020-07-02] MEDS: iohexol 350 mg/mL 100 mL Btl IV (15:09)
[2020-07-02 17:20] VITALS: RESP 18; O2SAT 96
[2020-07-02 18:03] VITALS: BP 94/77; PULSE 92; RESP 17; O2SAT 17
[2020-07-03 15:31] LABS: Coronavirus Test Green County DETECTED
== END 2020-07-02 18:04 | disposition home or self-care (01) ==
PROVIDERS: Emergency Provider Family Medicine; PCP Electrodiagnostic Medicine
DX: U07.1 COVID-19 (principal); J12.89 Other viral pneumonia; I71.2 Thoracic aortic aneurysm, without rupture; R09.02 Hypoxemia; Z79.82 Long term (current) use of aspirin; E78.5 Hyperlipidemia, unspecified; I10 Essential (primary) hypertension; Z87.891 Personal history of nicotine dependence
CPT/HCPCS: 12345; 71045; 71275; 80053; 82550; 83605; 84145; 84484; 85025; 85378; 86140; 87040; 87426; 87635; 87804; 99283; Q9967

== ENCOUNTER 2020-08-28 08:41 | Outpatient (CLI) | payer BC, SELFPAY ==
--- NOTE | 2020-08-28 08:45 | USCV_ITS ---
Jessica Singh Age: 60 Gender: F : 1960 Exam Date: 08/28/2020 08:56 Ordering Phys: Roberto Roy MD (Andy) ([email or web address]) Technologist: Dolores Stern Exam Location: [facility] [place] Indication: THORACIC AORTIC ANEURYSM BP: / HR: 79 Rhythm: Sinus Technical Quality: Adequate MEASUREMENTS (Male / Female) Normal Values 2D ECHO LV Diastolic Diameter PLAX 3.8 cm 4.2 - 5.9 / 3.9 - 5.3 cm LV Systolic Diameter PLAX 2.5 cm LV Chamber Size 3.0 cm IVS Diastolic Thickness 1.2 cm 0.6 - 1.0 / 0.6 - 0.9 cm IVS Systolic Thickness 1.3 cm LVPW Diastolic Thickness 1.0 cm 0.6 - 1.0 / 0.6 - 0.9 cm LVPW Systolic Thickness 1.4 cm RV Chamber Size 2.0 cm LVOT Diameter 2.1 cm LV Ejection Fraction 2D Teich 62.3 % LV Ejection Fraction MOD 2C 46.7 % LV Ejection Fraction 2C AL 45.7 % LA Diameter 1.6 cm LA Width 2.4 cm LA Height 2.5 cm RA Width 2.8 cm RA Height 3.6 cm Aorta at Sinotubular Diameter 3.0 cm M-MODE LV Diastolic Diameter MM 3.8 cm 4.2 - 5.9 / 3.9 - 5.3 cm LV Systolic Diameter MM 2.8 cm LV Ejection Fraction MM Teich 52.1 % IVS Diastolic Thickness MM 1.1 cm 0.6 - 1.0 / 0.6 - 0.9 cm IVS Systolic Thickness MM 1.7 cm LVPW Diastolic Thickness MM 1.1 cm 0.6 - 1.0 / 0.6 - 0.9 cm LVPW Systolic Thickness MM 1.6 cm RV Diastolic Diameter MM 1.0 cm Aortic Annulus Diameter 3.5 cm LA Ao Ratio MM 0.5 MV E Point Septal Separation 0.1 cm DOPPLER AV Peak Velocity 151.0 cm/s LVOT Peak Velocity 107.0 cm/s AV Area Cont Eq vti 2.5 cm squared AV Area Cont Eq pk 2.4 cm squared MV Area PHT 3.1 cm squared Mitral E to A Ratio 1.0 MV E' Velocity 51.5 cm/s Mitral E to MV E' Ratio 13.0 Mitral E to LV E' Lateral Ratio 14.0 Mitral E to LV E' Septal Ratio 12.2 TR Peak Velocity 197.2 cm/s TR Peak Gradient 15.6 mmHg TR Mean Velocity 186.0 cm/s TR Mean Gradient 15.2 mmHg TR Velocity Time Integral 12.7 cm TV Peak E Velocity 73.0 cm/s Right Atrial Pressure 3.0 mmHg Pulmonary Artery Systolic Pressu 18.6 mmHg PV Peak Velocity 69.0 cm/s RV Acceleration Time 0.1 s RV Ejection Time 0.3 s RV AcT/ET 0.5 FINDINGS Left Ventricle Normal left ventricular size. LV systolic function is normal with EF of 55-60%. No regional wall motion abnormalities. Normal diastolic filling pattern. Right Ventricle The right ventricle is normal in size and function. Right Atrium The right atrium is normal in size. Left Atrium The left atrium is normal in size. Mitral Valve Structurally normal mitral valve without significant stenosis or prolapse. There is trace mitral regurgitation. Aortic Valve Not well visualized but appears grossly normal without significant sclerosis or stenosis. There is no aortic regurgitation. Tricuspid Valve Structurally normal tricuspid valve without significant stenosis or regurgitation. Insufficient TR jet to calculate RVSP Pulmonic Valve Structurally normal pulmonic valve without significant stenosis. There is no pulmonic regurgitation. Pericardium Normal pericardium without effusion. Aorta Normal size of aortic root and proximal ascending aorta dimension. CONCLUSIONS LV systolic function is normal with EF of 55-60% Diatsolic function is normal Trace mitral regurgitation Normal sized aortic root and proximal ascending aorta Compared to prior echocardiogram from 01/05/2020, no significant changes are noted Jeff Kam MD (Electronically Signed) Final Date: 03 September 2020 15:38 S
== END 2020-08-28 08:42 | disposition home or self-care (01) ==
PROVIDERS: PCP Electrodiagnostic Medicine; Visit Provider Thoracic Surgery (Cardiothoracic Vascular Surgery)
DX: I71.2 Thoracic aortic aneurysm, without rupture (principal); I34.0 Nonrheumatic mitral (valve) insufficiency
CPT/HCPCS: 93306

== ENCOUNTER 2021-02-14 08:59 | Outpatient (CLI) | payer BC, SELFPAY ==
--- NOTE | 2021-02-14 09:23 | CT_ITS ---
WS: [id number] CTA THORACIC TECHNIQUE: Contrast enhanced CTA of the thoracic aorta with coronal and sagittal reformatted images a nd maximum intensity projection (MIP) images. CLINICAL INFORMATION: I71.2 - Thoracic aortic aneurysm, without rupture COMPARISON: July 02, 2020 DLP: 1378.[address] scans at [facility] use at least one of these dose optimization techniques: automat ed exposure control; mA and/or kV adjustment per patient size (includes targeted exams where dose is matched to clinical indication); or iterative reconstruction. FINDINGS: Proximal main pulmonary arteries are normal. Slightly prominent ascending thoracic aorta measures nadira roximately 3.6 cm today compared to 4.3 cm previous. This is likely due to motion and systolic cardia c artifact on the prior examination. Normal caliber aortic arch. Normal caliber descending thoracic a alicia. Diffuse infiltration of the liver. Hepatomegaly. Adrenal glands are normal. Normal renal parenchymal enhancement partially visualized. Normal spleen. Large esophageal hiatal hernia with intrathoracic st omach herniated into the right lower lobe. This is unchanged from previous. No axillary lymphadenopathy. No mediastinal or hilar lymphadenopathy. Lungs are well aerated today. P reviously described groundglass infiltrates have resolved. No residual infiltrates. No suspicious pul monary parenchymal opacities. CT/CT angio chest [id number] IMPRESSION: 1. Slightly prominent ascending thoracic aorta today measures 3.6 cm in maximu m dimension decreased in size from previous likely due to motion and systolic c ardiac artifact previously 2. Proximal main pulmonary arteries are normal. 3. Large esophageal hiatal hernia with intrathoracic stomach and right lower l obe is unchanged. Wide hernia mouth measuring 5.1 cm 4. Lungs are well aerated today. Previously described infiltrates have resolve d. 5. Hepatomegaly with diffuse fatty infiltration.
[2021-02-14 09:54] LABS: Blood Urea Nitrogen 13 mg/dL (8-23); Glomerular Filtration Rate 85.4 mL/min (90-130)
[2021-02-14] MEDS: iohexol 350 mg/mL 100 mL Btl IV (10:03)
== END 2021-02-14 09:00 | disposition home or self-care (01) ==
PROVIDERS: PCP Electrodiagnostic Medicine; Visit Provider Thoracic Surgery (Cardiothoracic Vascular Surgery)
DX: I71.2 Thoracic aortic aneurysm, without rupture (principal); R16.0 Hepatomegaly, not elsewhere classified; K76.0 Fatty (change of) liver, not elsewhere classified; K44.9 Diaphragmatic hernia without obstruction or gangrene
CPT/HCPCS: 71275; 82565; 84520; Q9967

== ENCOUNTER → 2021-11-28 11:21 | Outpatient (BNVA) | payer BC, SELFPAY | PROVIDERS: PCP Family Medicine Adult Medicine; Visit Provider Family Medicine Adult Medicine | DX: I10 Essential (primary) hypertension (principal); E78.5 Hyperlipidemia, unspecified; E03.9 Hypothyroidism, unspecified; I71.2 Thoracic aortic aneurysm, without rupture | CPT/HCPCS: 80053; 80061; 83036; 84443; 85025 ==

== ENCOUNTER 2022-03-26 10:09 | Outpatient (CLI) | payer BC, SELFPAY ==
[2022-03-26 11:00] LABS: Estmated Average Glucose 206; Hemoglobin A1C 8.8 % (4.0-6.0)
[2022-03-26 11:03] LABS: Alanine Aminotransferase 25 U/L (0-33); Albumin Level 4.2 g/dL (3.5-5.2); Alkaline Phosphatase 84 U/L (35-105); Anion Gap 15.7 (5-19); Aspartate Amino Transferase 29 U/L (0-32); Blood Urea Nitrogen 14 mg/dL (8-23); Calcium 10.3 mg/dL (8.5-10.5); Carbon Dioxide 29 mmol/L (22-29); Chloride 96 mmol/L (98-107); Chol HDL Ratio 3.35 mg/dL (0.0-4.40); Cholesterol 114 mg/dL (0-200); Free T4 Free Thyroxine 2.65 ng/dL (0.82-1.77); Globulin 3.7 g/dL (1.3-4.6); Glomerular Filtration Rate 101.6 mL/min (90-130); Glucose 186 mg/dL (65-115); HDL Cholesterol 34 mg/dL (60-100); LDL Cholesterol Calculated 48 mg/dL (50-129); LDL HDL Ratio 1.41 RATIO (0.00-3.22); Osmolality Calculated 289 mOsm/kg (285-295); Potassium 3.7 mmol/L (3.5-5.1); Sodium 137 mmol/L (136-145); Thyroid Stimulating Hormone 0.01 uIU/mL (0.27-4.20); Total Bilirubin 0.9 mg/dL (0.15-1.2); Total Protein 7.9 g/dL (6.6-8.7); Triglycerides 158 mg/dL (0-150)
== END 2022-03-26 10:10 | disposition home or self-care (01) ==
LOC: LAB 10:12
PROVIDERS: PCP Family Medicine Adult Medicine; Visit Provider Internal Medicine
DX: E03.9 Hypothyroidism, unspecified (principal)
CPT/HCPCS: 36415; 80053; 80061; 83036; 84439; 84443

== ENCOUNTER 2022-04-01 07:53 | Outpatient (CLI) | payer BC, SELFPAY ==
--- NOTE | 2022-04-01 08:11 | MM_ITS ---
WS: [id number] BILATERAL SCREENING DIGITAL TOMOSYNTHESIS MAMMOGRAM WITH CAD HISTORY: SCREEN COMPARISON: 02/14/2011, 12/17/2012, 10/27/2017 Bilateral CC and MLO views with tomosynthesis and synthetic mammography submitted. Computer aided det ection analyzed. Breast composition: There are scattered areas of fibroglandular density. No suspicious masses, microc alcifications or architectural distortion. Benign calcifications within each breast. Soft tissue post erior to the LEFT nipple similar to the prior study from 2010. MM/[place] [id number] IMPRESSION: BI-RADS: 2-Benign FOLLOW UP: 1 Year Follow-up
== END 2022-04-01 07:54 | disposition home or self-care (01) ==
LOC: RAD 07:54
PROVIDERS: PCP Family Medicine Adult Medicine; Visit Provider Family Medicine Adult Medicine
DX: Z12.31 Encounter for screening mammogram for malignant neoplasm of breast (principal)
CPT/HCPCS: 77063; 77067

== ENCOUNTER 2022-04-02 14:36 | Outpatient (CLI) | payer BC, SELFPAY ==
--- NOTE | 2022-04-02 15:00 | CT_ITS ---
WS: [id number] CTA THORACIC TECHNIQUE: Contrast enhanced CTA of the thoracic aorta with coronal and sagittal reformatted images a nd maximum intensity projection (MIP) images. CLINICAL INFORMATION: ascending aortic aneurysm COMPARISON: CT February 14, 2021 DLP: 456.[address] scans at [facility] use at least one of these dose optimization techniques: automated e xposure control; mA and/or kV adjustment per patient size (includes targeted exams where dose is matc hed to clinical indication); or iterative reconstruction. FINDINGS: Stable ascending thoracic aortic aneurysm measuring 3.6 cm. Normal caliber descending thoracic aorta. Proximal main pulmonary arteries are normal. Large esophageal hiatal hernia with intrathoracic stomach in the RIGHT posterior mediastinum is uncha nged. No mediastinal or hilar lymphadenopathy. No axillary lymphadenopathy. Celiac and SMA are patent. Adre nal glands are normal. CT/CT angio chest [id number] IMPRESSION: 1. Stable ascending thoracic aortic aneurysm measuring 3.6 cm 2. Proximal main pulmonary arteries are normal. 3. Large esophageal hiatal hernia with intrathoracic stomach in the RIGHT post erior mediastinum unchanged. 4. No other significant changes compared to previous
[2022-04-02] MEDS: iohexol 350 mg/mL 100 mL Btl IV (15:11)
== END 2022-04-02 14:37 | disposition home or self-care (01) ==
LOC: RAD 14:37
PROVIDERS: PCP Family Medicine Adult Medicine; Visit Provider Thoracic Surgery (Cardiothoracic Vascular Surgery)
DX: I71.21 Aneurysm of the ascending aorta, without rupture; K44.9 Diaphragmatic hernia without obstruction or gangrene
CPT/HCPCS: 71275

== ENCOUNTER 2022-05-20 09:51 | Outpatient (CLI) | payer BC, SELFPAY ==
[2022-05-20 15:33] LABS: Free T4 Free Thyroxine 1.81 ng/dL (0.82-1.77); Thyroid Stimulating Hormone 0.01 uIU/mL (0.27-4.20)
== END 2022-05-20 09:52 | disposition home or self-care (01) ==
PROVIDERS: PCP Family Medicine Adult Medicine; Visit Provider Internal Medicine
DX: E03.9 Hypothyroidism, unspecified (principal); E78.5 Hyperlipidemia, unspecified
CPT/HCPCS: 36415; 84439; 84443

== ENCOUNTER 2022-07-09 07:44 | Outpatient (CLI) | payer BC, SELFPAY ==
[2022-07-09 08:39] LABS: Estmated Average Glucose 171; Hemoglobin A1C 7.6 % (4.0-6.0)
[2022-07-09 08:45] LABS: Alanine Aminotransferase 23 U/L (0-33); Albumin Level 4.4 g/dL (3.5-5.2); Alkaline Phosphatase 93 U/L (35-105); Aspartate Amino Transferase 22 U/L (0-32); Blood Urea Nitrogen 15 mg/dL (8-23); Calcium 9.7 mg/dL (8.5-10.5); Carbon Dioxide 26 mmol/L (22-29); Chloride 99 mmol/L (98-107); Chol HDL Ratio 2.96 mg/dL (0.0-4.40); Cholesterol 133 mg/dL (0-200); Globulin 3.6 g/dL (1.3-4.6); Glomerular Filtration Rate 125.4 mL/min (90-130); Glucose 121 mg/dL (65-115); HDL Cholesterol 45 mg/dL (60-100); LDL Cholesterol Calculated 62 mg/dL (50-129); LDL HDL Ratio 1.38 RATIO (0.00-3.22); Osmolality Calculated 290 mOsm/kg (285-295); Sodium 139 mmol/L (136-145); Total Bilirubin 0.7 mg/dL (0.15-1.2); Triglycerides 131 mg/dL (0-150)
[2022-07-09 08:46] LABS: Creatinine Urine, Random 81 mg/dL (28-217); Microalbum Creatinine Ratio Ur 12 mg/dL (0-20); Microalbumin Random Urine 1 ug/dL (0-20)
[2022-07-09 08:47] LABS: Anion Gap 17.9 (5-19); Potassium 3.9 mmol/L (3.5-5.1)
== END 2022-07-09 07:45 | disposition home or self-care (01) ==
LOC: LAB 07:47
PROVIDERS: PCP Family Medicine Adult Medicine; Visit Provider Internal Medicine
DX: E03.9 Hypothyroidism, unspecified (principal); E78.5 Hyperlipidemia, unspecified
CPT/HCPCS: 36415; 80053; 80061; 82044; 83036

== ENCOUNTER → 2022-08-06 14:22 | Outpatient (BNVA) | payer BC, SELFPAY | PROVIDERS: PCP Family Medicine Adult Medicine; Visit Provider Internal Medicine | DX: E03.9 Hypothyroidism, unspecified (principal); E78.5 Hyperlipidemia, unspecified; E11.8 Type 2 diabetes mellitus with unspecified complications | CPT/HCPCS: 36415; 84439; 84443 ==

== ENCOUNTER 2022-11-07 09:51 | Outpatient (CLI) | payer BC, SELFPAY ==
[2022-11-07 11:12] LABS: Alanine Aminotransferase 15 U/L (0-33); Albumin Level 4.2 g/dL (3.5-5.2); Alkaline Phosphatase 105 U/L (35-105); Anion Gap 15.9 (5-19); Aspartate Amino Transferase 19 U/L (0-32); Blood Urea Nitrogen 20 mg/dL (8-23); Calcium 9.4 mg/dL (8.5-10.5); Carbon Dioxide 28 mmol/L (22-29); Chloride 98 mmol/L (98-107); Chol HDL Ratio 2.93 mg/dL (0.0-4.40); Cholesterol 132 mg/dL (0-200); Globulin 3.2 g/dL (1.3-4.6); Glomerular Filtration Rate 84.8 mL/min (90-130); Glucose 141 mg/dL (65-115); HDL Cholesterol 45 mg/dL (60-100); LDL Cholesterol Calculated 62 mg/dL (50-129); LDL HDL Ratio 1.38 RATIO (0.00-3.22); Osmolality Calculated 291 mOsm/kg (285-295); Potassium 3.9 mmol/L (3.5-5.1); Sodium 138 mmol/L (136-145); Total Bilirubin 0.8 mg/dL (0.15-1.2); Total Protein 7.4 g/dL (6.6-8.7); Triglycerides 126 mg/dL (0-150)
[2022-11-07 11:16] LABS: Creatinine Urine, Random 133 mg/dL (28-217); Microalbum Creatinine Ratio Ur 8 mg/dL (0-20); Microalbumin Random Urine 1 ug/dL (0-20)
[2022-11-07 15:46] LABS: Estmated Average Glucose 177; Hemoglobin A1C 7.8 % (4.0-6.0)
== END 2022-11-07 09:52 | disposition home or self-care (01) ==
PROVIDERS: PCP Family Medicine Adult Medicine; Visit Provider Internal Medicine
DX: E11.9 Type 2 diabetes mellitus without complications (principal); E78.5 Hyperlipidemia, unspecified; E03.9 Hypothyroidism, unspecified
CPT/HCPCS: 36415; 80053; 80061; 82044; 83036

== ENCOUNTER → 2022-11-20 09:40 | Outpatient (BNVA) | payer BC, SELFPAY | PROVIDERS: PCP Family Medicine Adult Medicine; Visit Provider Internal Medicine | DX: E11.9 Type 2 diabetes mellitus without complications (principal); E78.5 Hyperlipidemia, unspecified; E03.9 Hypothyroidism, unspecified | CPT/HCPCS: 36415; 84439; 84443 ==

== ENCOUNTER 2023-03-04 09:16 | Outpatient (CLI) | payer BC, SELFPAY ==
[2023-03-04 10:30] LABS: Free T4 Free Thyroxine 1.04 ng/dL (0.82-1.77); Thyroid Stimulating Hormone 0.09 uIU/mL (0.27-4.20)
== END 2023-03-04 09:17 | disposition home or self-care (01) ==
PROVIDERS: PCP Family Medicine Adult Medicine; Visit Provider Internal Medicine
DX: E78.5 Hyperlipidemia, unspecified (principal); E03.9 Hypothyroidism, unspecified; E11.9 Type 2 diabetes mellitus without complications
CPT/HCPCS: 36415; 84439; 84443

== ENCOUNTER 2023-03-13 12:11 | Outpatient (CLI) | payer BC, SELFPAY ==
[2023-03-13] MEDS: iohexol 350 mg/mL 500 mL Btl (per mL) IV (12:27)
--- NOTE | 2023-03-13 12:30 | CT_ITS ---
WS: [id number] CTA THORACIC AORTA WITH AND WITHOUT CONTRAST. HISTORY: ascending aortic aneurysm TECHNIQUE: CT imaging of the thorax is performed with and without contrast. After noncontrast imaging is performed, CT angiogram is performed during injection of Omnipaque 350; 100 mL IV.. Sagittal and coronal reconstructions, sagittal and coronal MIP imaging is submitted. All CT scans at [facility] use at least one of these dose optimization techniques: automated exposure control; mA and/or k V adjustment per patient size (includes targeted exams where dose is matched to clinical indication); or iterative reconstruction. DLP: 828.79 mGy.cm COMPARISON: 04/02/2022, 02/14/2021 No interval change in appearance of the thoracic aorta. There is very minimal dilatation of the ascen ding aorta to 3.7 cm. Scattered plaque through the aortic arch extending into the great vessels and a long the descending aorta. Normal caliber descending aorta. Pulmonary artery is equal in size to the aorta. No aortic dissection. No mediastinal or hilar adenopathy. Large esophageal hernia with intrathoracic stomach extending into the RIGHT lower thorax. Calcificati on in the suprarenal aorta. Mild thoracic spondylosis. No destructive bone lesions. IMPRESSION: 1. Stable very mild ectasia of the ascending thoracic aorta. Maximal diameter 3.7 cm. No dissection. 2. Large hiatal hernia is stable.
== END 2023-03-13 12:12 | disposition home or self-care (01) ==
PROVIDERS: PCP Family Medicine Adult Medicine; Visit Provider Thoracic Surgery (Cardiothoracic Vascular Surgery)
DX: I71.21 Aneurysm of the ascending aorta, without rupture (principal); K44.9 Diaphragmatic hernia without obstruction or gangrene
CPT/HCPCS: 71275; Q9967

== ENCOUNTER 2023-06-04 10:05 | Outpatient (CLI) | payer BC, SELFPAY ==
[2023-06-04 11:12] LABS: Alanine Aminotransferase 25 U/L (0-33); Albumin Level 4.4 g/dL (3.5-5.2); Alkaline Phosphatase 103 U/L (35-105); Anion Gap 17.9 (5-19); Aspartate Amino Transferase 32 U/L (0-32); Blood Urea Nitrogen 18 mg/dL (8-23); Calcium 9.2 mg/dL (8.5-10.5); Carbon Dioxide 28 mmol/L (22-29); Chloride 96 mmol/L (98-107); Chol HDL Ratio 3.31 mg/dL (0.0-4.40); Cholesterol 129 mg/dL (0-200); Free T4 Free Thyroxine 0.82 ng/dL (0.82-1.77); Globulin 3.4 g/dL (1.3-4.6); Glomerular Filtration Rate 63.4 mL/min (90-130); Glucose 269 mg/dL (65-115); HDL Cholesterol 39 mg/dL (60-100); LDL Cholesterol Calculated 53 mg/dL (50-129); LDL HDL Ratio 1.36 RATIO (0.00-3.22); Osmolality Calculated 297 mOsm/kg (285-295); Potassium 3.9 mmol/L (3.5-5.1); Sodium 138 mmol/L (136-145); Thyroid Stimulating Hormone 10.19 uIU/mL (0.27-4.20); Total Bilirubin 0.6 mg/dL (0.15-1.2); Total Protein 7.8 g/dL (6.6-8.7); Triglycerides 183 mg/dL (0-150)
[2023-06-04 11:13] LABS: Creatinine Urine, Random 149 mg/dL (28-217); Microalbum Creatinine Ratio Ur 13 mg/dL (0-20); Microalbumin Random Urine 2 ug/dL (0-20)
[2023-06-04 11:18] LABS: Estmated Average Glucose 220; Hemoglobin A1C 9.3 % (4.0-6.0)
== END 2023-06-04 10:06 | disposition home or self-care (01) ==
PROVIDERS: PCP Family Medicine Adult Medicine; Visit Provider Internal Medicine
DX: E78.5 Hyperlipidemia, unspecified (principal); E03.9 Hypothyroidism, unspecified
CPT/HCPCS: 36415; 80053; 80061; 82044; 83036; 84439; 84443

== ENCOUNTER 2023-08-05 09:02 | Outpatient (CLI) | payer BC, SELFPAY ==
[2023-08-05 09:53] LABS: Free T4 Free Thyroxine 1.37 ng/dL (0.82-1.77); Thyroid Stimulating Hormone 2.13 uIU/mL (0.27-4.20)
== END 2023-08-05 09:03 | disposition home or self-care (01) ==
LOC: LAB 09:05
PROVIDERS: PCP Family Medicine; Visit Provider Internal Medicine
DX: E03.9 Hypothyroidism, unspecified (principal)
CPT/HCPCS: 36415; 84439; 84443

== ENCOUNTER 2023-10-28 08:27 | Outpatient (CLI) | payer BC, SELFPAY ==
[2023-10-28 09:31] LABS: Estmated Average Glucose 217; Hemoglobin A1C 9.2 % (4.0-6.0)
[2023-10-28 09:36] LABS: Creatinine Urine, Random 183 mg/dL (28-217); Microalbum Creatinine Ratio Ur 5 mg/dL (0-20); Microalbumin Random Urine 1 ug/dL (0-20)
[2023-10-28 09:40] LABS: Alanine Aminotransferase 18 U/L (0-33); Albumin Level 3.8 g/dL (3.5-5.2); Alkaline Phosphatase 87 U/L (35-105); Anion Gap 13.8 (5-19); Aspartate Amino Transferase 19 U/L (0-32); Blood Urea Nitrogen 15 mg/dL (8-23); Calcium 9.2 mg/dL (8.5-10.5); Carbon Dioxide 29 mmol/L (22-29); Chloride 97 mmol/L (98-107); Chol HDL Ratio 2.68 mg/dL (0.0-4.40); Cholesterol 118 mg/dL (0-200); Free T4 Free Thyroxine 0.96 ng/dL (0.82-1.77); Globulin 3.2 g/dL (1.3-4.6); Glomerular Filtration Rate 84.5 mL/min (90-130); Glucose 198 mg/dL (65-115); HDL Cholesterol 44 mg/dL (60-100); LDL Cholesterol Calculated 40 mg/dL (50-129); LDL HDL Ratio 0.91 RATIO (0.00-3.22); Osmolality Calculated 288 mOsm/kg (285-295); Potassium 3.8 mmol/L (3.5-5.1); Sodium 136 mmol/L (136-145); Thyroid Stimulating Hormone 3.19 uIU/mL (0.27-4.20); Total Bilirubin 0.5 mg/dL (0.15-1.2); Triglycerides 169 mg/dL (0-150)
== END 2023-10-28 08:28 | disposition home or self-care (01) ==
LOC: LAB 08:29
PROVIDERS: PCP Family Medicine; Visit Provider Internal Medicine
DX: E03.9 Hypothyroidism, unspecified (principal); E78.5 Hyperlipidemia, unspecified
CPT/HCPCS: 36415; 80053; 80061; 82044; 83036; 84439; 84443

== ENCOUNTER 2024-01-27 11:29 | Outpatient (CLI) | payer BC, SELFPAY ==
[2024-01-27 12:37] LABS: Estmated Average Glucose 212
[2024-01-27 12:46] LABS: Alanine Aminotransferase 18 U/L (0-33); Albumin Level 4.2 g/dL (3.5-5.2); Alkaline Phosphatase 94 U/L (35-105); Aspartate Amino Transferase 20 U/L (0-32); Blood Urea Nitrogen 20 mg/dL (8-23); Calcium 9.6 mg/dL (8.5-10.5); Carbon Dioxide 24 mmol/L (22-29); Chloride 99 mmol/L (98-107); Cholesterol 132 mg/dL (0-200); Free T4 Free Thyroxine 1.52 ng/dL (0.82-1.77); Globulin 3.7 g/dL (1.3-4.6); Glomerular Filtration Rate 72.4 mL/min (90-130); Glucose 209 mg/dL (65-115); HDL Cholesterol 40 mg/dL (60-100); LDL Cholesterol Calculated 58 mg/dL (50-129); LDL HDL Ratio 1.45 RATIO (0.00-3.22); Osmolality Calculated 301 mOsm/kg (285-295); Sodium 141 mmol/L (136-145); Total Bilirubin 0.9 mg/dL (0.15-1.2); Total Protein 7.9 g/dL (6.6-8.7); Triglycerides 170 mg/dL (0-150)
[2024-01-27 12:46] LABS: Creatinine Urine, Random 289 mg/dL (28-217); Microalbum Creatinine Ratio Ur 10 mg/dL (0-20); Microalbumin Random Urine 3 ug/dL (0-20)
== END 2024-01-27 11:30 | disposition home or self-care (01) ==
LOC: LAB 11:30
PROVIDERS: PCP Family Medicine; Visit Provider Internal Medicine
DX: E78.5 Hyperlipidemia, unspecified (principal); E03.9 Hypothyroidism, unspecified
CPT/HCPCS: 36415; 80053; 80061; 82044; 83036; 84439; 84443

== ENCOUNTER → 2024-02-19 13:20 | Outpatient (BNVA) | payer BC, SELFPAY | PROVIDERS: PCP Family Medicine; Visit Provider Family Medicine | DX: D64.9 Anemia, unspecified (principal) | CPT/HCPCS: 85025 ==

== ENCOUNTER → 2024-03-13 14:45 | Outpatient (BNVA) | payer BC, SELFPAY | PROVIDERS: PCP Family Medicine; Visit Provider Emergency Medicine | DX: J06.9 Acute upper respiratory infection, unspecified (principal) | CPT/HCPCS: 87400; 87426 ==

== ENCOUNTER 2024-03-16 09:33 | Outpatient (CLI) | payer BC, SELFPAY ==
--- NOTE | 2024-03-16 09:37 | XRR_ITS ---
PROCEDURE INFORMATION: Exam: XR Chest Exam date and time: 03/16/2024 9:58 AM Age: 63 years old Clinical indication: Pain; Angina pectoris; Additional info: Chest pain TECHNIQUE: Imaging protocol: Radiologic exam of the chest. Views: 2 views. COMPARISON: CT angio chest [id number] 03/13/2023 1:15 PM FINDINGS: Lungs: Unremarkable. No consolidation. Pleural spaces: Unremarkable. No pleural effusion. No pneumothorax. Heart/Mediastinum: Large hiatal hernia. Bones/joints: Unremarkable. XR/XR chest 2V* [id number] IMPRESSION: No acute findings.
== END 2024-03-16 09:34 | disposition home or self-care (01) ==
PROVIDERS: PCP Family Medicine; Visit Provider Family Medicine
DX: R07.9 Chest pain, unspecified (principal)
CPT/HCPCS: 71046; 85025; 85379

== ENCOUNTER 2024-03-18 09:56 | Outpatient (CLI) | payer BC, SELFPAY ==
--- NOTE | 2024-03-18 10:30 | CT_ITS ---
WS: [id number] CT CHEST ANGIOGRAPHY WITH REFORMATS HISTORY: dyspnea TECHNIQUE: Contiguous axial images are obtained through the chest during arterial injection of intrav enous contrast. Images are reconstructed to evaluate the pulmonary arteries. MIP imaging also reviewe d. All CT scans at [facility] use at least one of these dose optimization techniques: automat ed exposure control; mA and/or kV adjustment per patient size (includes targeted exams where dose is matched to clinical indication); or iterative reconstruction. CONTRAST: Omnipaque 350; 100 mL IV. DLP: 482.60 mGy.cm COMPARISON: 03/13/2023 No central pulmonary emboli. Good opacification of the pulmonary arteries. There is a central filling defect in the SVC and also the azygos vein. These veins are commonly poorly opacified with contrast but the defects on today's study are moderately suspicious for thrombus. No RIGHT heart strain. Courtney l heart. No pulmonary mass or nodule. Patient has a known very large central hiatal hernia which contains the stomach and omental fat. Mild hepatic steatosis. Small LEFT adrenal adenoma. Adenomas incompletely visualized. CT/CT angio chest PE protcl [id number] IMPRESSION: 1. No pulmonary embolism. 2. Filling defects are noted within the mid SVC and also the azygos vein. Thes e are common sites for admixing of contrast and blood due to injection. The fin dings on this CT are slightly more suspicious for DVT. With patient's history o f neck pain. Consider evaluation by ultrasound of the SVC/RIGHT jugular vein an d RIGHT subclavian vein.
[2024-03-18] MEDS: iohexol 350 mg/mL 500 mL Btl (per mL) IV (10:34)
== END 2024-03-18 09:57 | disposition home or self-care (01) ==
LOC: RAD 09:56
PROVIDERS: PCP Family Medicine; Visit Provider Family Medicine
DX: R93.89 Abnormal findings on diagnostic imaging of other specified body structures (principal); R06.00 Dyspnea, unspecified; R79.89 Other specified abnormal findings of blood chemistry; R07.9 Chest pain, unspecified; K44.9 Diaphragmatic hernia without obstruction or gangrene; D35.02 Benign neoplasm of left adrenal gland
CPT/HCPCS: 71275

== ENCOUNTER 2024-03-18 14:29 | Outpatient (CLI) | payer BC, SELFPAY ==
--- NOTE | 2024-03-18 15:00 | USCV_ITS ---
Jessica Singh Age: 63 Gender: F : 1960 Exam Date: 03/18/2024 15:00 Ordering Phys: Jose Salguero MD Technologist: Exam Location: [facility] [place], [place]_ Indication: ABNORMAL CT PROCEDURES: The following venous structures were evaluated: internal jugular vein, subclavian vein, axillary vein, and brachial veins. In addition, the basilic vein, cephalic vein, radial vein, and ulnar vein. FINDINGS: The veins of the left upper extremity are readily compressible with normal venous flow dynamics including spontaneous flow, respiratory phasic variation and augmentation. No evidence of deep vein thrombosis or superficial thrombophlebitis in the left upper extremity. CONCLUSIONS Poorly visualized SVC but the remaining upper extremity veins are normal. Dr. Cassandra Cruz DO (Electronically Signed) Final Date: 18 March 2024 15:40 S
== END 2024-03-18 14:30 | disposition home or self-care (01) ==
LOC: RAD 14:30
PROVIDERS: PCP Family Medicine; Visit Provider Family Medicine
DX: R79.89 Other specified abnormal findings of blood chemistry (principal); M54.2 Cervicalgia
CPT/HCPCS: 93971

== ENCOUNTER 2024-03-31 12:52 | Outpatient (CLI) | payer BC, SELFPAY ==
--- NOTE | 2024-03-31 13:00 | MM_ITS ---
WS: [id number] BILATERAL 3D TOMOSYNTHESIS DIGITAL SCREENING MAMMOGRAPHY WITH CAD CLINICAL INFORMATION: screening HISTORY: Screening mammogram. No current complaints. COMPARISON: 2021 TECHNIQUE: Bilateral CC and MLO views. FINDINGS: Scattered fibroglandular densities bilaterally. No suspicious focal mass, asymmetry, calcifications, or architectural distortion. No evidence of malignancy. Incidental punctate and lucent centered calci fications. MM/MM [facility] tomosynthesis [id number] IMPRESSION: DENSITY: There are scattered areas of fibroglandular density. BI-RADS: 2 - Benign. FOLLOW UP: 1 Year Follow-up Recommend return to annual screening mammography.
== END 2024-03-31 12:53 | disposition home or self-care (01) ==
LOC: RAD 12:52
PROVIDERS: PCP Family Medicine; Visit Provider Family Medicine
DX: Z12.31 Encounter for screening mammogram for malignant neoplasm of breast (principal); R92.323 Mammographic fibroglandular density, bilateral breasts; R92.1 Mammographic calcification found on diagnostic imaging of breast
CPT/HCPCS: 77063; 77067

== ENCOUNTER 2024-04-28 08:37 | Outpatient (CLI) | payer BC, SELFPAY ==
[2024-04-28 09:38] LABS: Creatinine Urine, Random 155 mg/dL (28-217); Microalbum Creatinine Ratio Ur 6 mg/dL (0-20); Microalbumin Random Urine 1 ug/dL (0-20)
[2024-04-28 09:38] LABS: Estmated Average Glucose 212
[2024-04-28 09:41] LABS: Alanine Aminotransferase 28 U/L (0-33); Alkaline Phosphatase 85 U/L (35-105); Anion Gap 15.8 (5-19); Aspartate Amino Transferase 24 U/L (0-32); Blood Urea Nitrogen 15 mg/dL (8-23); Calcium 8.6 mg/dL (8.5-10.5); Carbon Dioxide 27 mmol/L (22-29); Chloride 100 mmol/L (98-107); Cholesterol 146 mg/dL (0-200); Free T4 Free Thyroxine 0.85 ng/dL (0.82-1.77); Globulin 2.8 g/dL (1.3-4.6); Glomerular Filtration Rate 84.5 mL/min (90-130); Glucose 179 mg/dL (65-115); HDL Cholesterol 54 mg/dL (60-100); LDL Cholesterol Calculated 66 mg/dL (50-129); LDL HDL Ratio 1.22 RATIO (0.00-3.22); Osmolality Calculated 293 mOsm/kg (285-295); Potassium 3.8 mmol/L (3.5-5.1); Sodium 139 mmol/L (136-145); Thyroid Stimulating Hormone 6.76 uIU/mL (0.27-4.20); Total Bilirubin 0.5 mg/dL (0.15-1.2); Total Protein 6.8 g/dL (6.6-8.7); Triglycerides 129 mg/dL (0-150)
[2024-04-29 07:10] LABS: C-Peptide 2.44 ng/mL (0.80-3.85)
== END 2024-04-28 08:38 | disposition home or self-care (01) ==
LOC: LAB 08:37
PROVIDERS: PCP Family Medicine; Visit Provider Internal Medicine
DX: E78.5 Hyperlipidemia, unspecified (principal); E03.9 Hypothyroidism, unspecified
CPT/HCPCS: 36415; 80053; 80061; 82044; 83036; 84439; 84443; 84681; 86337; 86341

== ENCOUNTER 2024-08-16 16:29 | Outpatient (CLI) | payer BC, SELFPAY ==
[2024-08-16 17:27] LABS: Estmated Average Glucose 194; Hemoglobin A1C 8.4 % (4.0-6.0)
[2024-08-16 17:41] LABS: Alanine Aminotransferase 22 U/L (0-33); Albumin Level 3.7 g/dL (3.5-5.2); Alkaline Phosphatase 82 U/L (35-105); Anion Gap 15.3 (5-19); Aspartate Amino Transferase 26 U/L (0-32); Blood Urea Nitrogen 15 mg/dL (8-23); Calcium 9.3 mg/dL (8.5-10.5); Carbon Dioxide 27 mmol/L (22-29); Chloride 102 mmol/L (98-107); Cholesterol 112 mg/dL (0-200); Glucose 233 mg/dL (65-115); HDL Cholesterol 35 mg/dL (60-100); LDL Cholesterol Calculated 35 mg/dL (50-129); Osmolality Calculated 300 mOsm/kg (285-295); Potassium 3.3 mmol/L (3.5-5.1); Sodium 141 mmol/L (136-145); Total Bilirubin 0.4 mg/dL (0.15-1.2); Total Protein 6.7 g/dL (6.6-8.7); Triglycerides 209 mg/dL (0-150)
[2024-08-16 18:21] LABS: Creatinine Urine, Random 242 mg/dL (28-217); Microalbum Creatinine Ratio Ur 4 mg/dL (0-20); Microalbumin Random Urine 1 ug/dL (0-20)
== END 2024-08-16 16:30 | disposition home or self-care (01) ==
LOC: LAB 16:30
PROVIDERS: PCP Family Medicine; Visit Provider Internal Medicine
DX: E78.5 Hyperlipidemia, unspecified (principal)
CPT/HCPCS: 36415; 80053; 80061; 82044; 83036

== ENCOUNTER → 2024-08-23 12:22 | Outpatient (BNVA) | payer BC, SELFPAY | PROVIDERS: PCP Family Medicine; Visit Provider Internal Medicine | DX: E03.9 Hypothyroidism, unspecified (principal) | CPT/HCPCS: 36415; 84439; 84443 ==

== ENCOUNTER 2024-08-24 09:15 | Emergency (ER) | payer BC, SELFPAY ==
[2024-08-24] VITALS (8 sets, daily range): BP systolic 111–136; BP diastolic 67–83; PULSE 78–84; RESP 12–20; TEMP 36.7; O2SAT 95–98; BMI 35.2
--- NOTE | 2024-08-24 09:19 | CT_ITS ---
WS: [id number] CT HEAD TECHNIQUE: Noncontrast CT of the head obtained from the skullbase to the vertex. CLINICAL INFORMATION: Symptoms of acute stroke COMPARISON: None. DLP: [address] scans at [facility] use at least one of these dose optimization techniques: automated exposure control; mA and/or kV adjustment per patient size (includes targeted exams where dose is matched to clinical indication); or iterative reconstruction. FINDINGS: Dense RIGHT MCA. Recommend further evaluation with CTA to assess for occlusion. No evidence of intracranial hemorrhage or mass effect. Ventricular system and basal cisterns are patent. Moderate small vessel changes with moderate parenchymal volume loss. No extra-axial fluid collections. No evidence of mass or mass effect. Paranasal sinuses and mastoid air cells are well aerated. A few secretions in the LEFT ethmoid air cells..Normal visualized soft tissues. CT/CT head thrombolytic [id number] IMPRESSION: 1. No evidence of intracranial hemorrhage or mass effect. 2. Dense RIGHT MCA. Recommend further evaluation with CTA Notified Toni Worthington DO at 08/24/2024 9:28 AM.
--- NOTE | 2024-08-24 09:26 | ECG_ITS ---
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
--- NOTE | 2024-08-24 09:26 | ED_ITS ---
HPI - Neuro Symptoms/Deficit 2 General: Chief Complaint: Neuro Symptoms/Deficit Stated Complaint: Stroke Alert Time Seen by Provider: 08/24/24 09:18 History of Present Illness: 63-year-old female brought into the [facility] room by EMS as a stroke alert. She woke up at around 730 according to her family went to the bathroom. Her found her collapsed naked on the floor at around 8:00. He called some other family members that came and seen and ultimately they called EMS she arrived here at 915. I seen her as they were unloading her from the cot to the CT scanner. Initial assessment she has an NIH of 15. She is well within the timeframe for thrombolytics. Her exam is especially significant for visual field deficit forced rightward gaze flaccid left arm and only able to move her leg on the left against gravity. She has ataxia of the arm and leg on the left side and loss of sensation. She has dysarthria and difficulty with word finding as well. Associated symptoms: Deny chest pain Related Data Home Medications ?Medication ?Instructions ?Recorded ?Confirmed aspirin 81 mg tablet,delayed 81 mg PO DAILY 01/04/20 0 08/24/24 release citalopram 40 mg tablet 20 mg PO DAILY mental health 08/19/24 08/24/24 insulin glargine 100 unit/mL (3 50 unit SUBCUT DAILY 0 08/24/24 08/24/24 mL) subcutaneous pen (Lantus Solostar U-100 Insulin) levothyroxine 100 mcg tablet 100 mcg PO QAM 08/24/24 0 08/24/24 metoprolol succinate 50 mg 50 mg PO DAILY 08/24/24 tablet,extended release 24 hr rosuvastatin 40 mg tablet 40 mg PO DAILY 08/24/2408/01 Previous Rx's ?Medication ?Instructions ?Recorded FreeStyle Monika 2 Webster (flash #1 ea 06/06/23 glucose scanning reader) pen needle, diabetic 32 gauge x #100 ea 12/04/23 (TechLITE Pen Needle) glipizide 5 mg tablet 10 mg (2 x 5 mg) PO TIDWMEAL #540 02/02/24 tabs alprazolam 0.25 mg tablet (Xanax) 0.25 mg PO BID PRN a nxiety #30 tabs 02/27/24 ibuprofen 800 mg tablet 800 mg PO Q8H PRN pain #30 t abs 03/13/24 omeprazole 40 mg capsule,delayed 40 mg PO DAILY #30 ca ps 03/13/24 release tramadol 50 mg tablet 50 mg PO Q6H PRN pain 7 days #28 03/13/24 tabs FreeStyle Monika 2 Sensor (flash #6 kits 05/10/24 glucose sensor) dulaglutide 4.5 mg/0.5 mL 4.5 mg (0.5 mL) SUBCUT .Qwee kly 3 05/10/24 subcutaneous pen injector months #6 mL (Trulicity) albuterol sulfate 1.25 mg/3 mL 1.25 mg (3 mL) inhalati on QID PRN 05/24/24 solution for nebulization shortness of breath or wheez ing #75 mL scopolamine base 1 mg over 3 days 1 patch transdermal Q3D PRN nausea 08/19/24 transdermal patch and vomiting #4 ea triamterene 37.5 1 tab PO DAILY #30 tabs 02/2 0/25 mg-hydrochlorothiazide 25 mg tablet Allergies Allergy/AdvReac Type Severity Reaction Status Date / Time Penicillins Allergy Unknown Verified 08/23/24 11:32 Sulfa (Sulfonamide Allergy Unknown Verified 08/23/24 11:32 Antibiotics) ciprofloxacin AdvReac Unknown Verified 08/23/24 11:32 Review of Systems 2 Const: Reports: chills Card: Denies: chest pain Resp: Denies: dyspnea GI: Denies: abdominal pain Skin/Breast: Denies: rash PFSH ED 2 PFSH: Medical History Anxiety and depression Diabetes type 2, uncontrolled Ascending aortic aneurysm Hypoxia Hiatal hernia Dyslipidemia Hypothyroidism Hypertension Surgical History H/O: hysterectomy History of appendectomy Family History Other CAD (coronary artery disease) Diabetes Hypertension Social History Smoking and tobacco/nicotine status: unknown if used tobacco/nicotine Alcohol intake: never Substance/Drug Use: never Housing: House NIH stroke score 2 NIHSS: Level Of Consciousness - 1a: 1 Level Of Consciousness Questions - 1b: Both Correct Level Of Consciousness Commands - 1c: Both Correct Best Gaze - 2: Forced Deviation Visual Killian - 3: Complete Hemianopia Facial Palsy - 4: Normal Motor Arm Right - 5: No Drift Motor Arm Left - 5: Effort Against [place] Motor Leg Right - 6: No Drift Motor Leg Left - 6: Drift Limb Ataxia - 7: Present In Two Limbs Sensory - 8: Mild To Moderate Loss B est Language - 9: Mild/Moderate Aphasia Dysarthia - 10: Mild/Moderate Dysarthia Extinction And Inattention - 11: 2 Score: Total Score: 15 Physical Exam 2 Const: GENERAL APPEARANCE: cooperative ORIENTATION/CONSCIOUSNESS: Yes awake, Yes oriented to person and Yes oriented to place HENMT: COMMON NORMALS: normocephalic, atraumatic and hearing grossly normal bilaterally HEAD & SCALP: normocephalic and atraumatic Resp: COMMON NORMALS: normal respiratory effort, No retractions, No use of accessory muscles and clear to auscultation bilaterally AUSCULTATION: clear to auscultation bilaterally Cardio: COMMON NORMALS: regular rate, regular rhythm and No murmurs present (Cardio) RATE: regular rate RHYTHM: regular rhythm GI: COMMON NORMALS: Soft to palpation and No hepatosplenomegaly present A USCULTATION: Yes normoactive bowel sounds PALPATION: Yes Soft to palpation, No Tenderness to palpation present (GI), No Guarding due to palpation present (GI) and Yes No hepatosplenomegaly present Extremity: COMMON NORMALS: normal to inspection, capillary refill normal, no clubbing, cyanosis or edema, no calf tenderness and no pedal edema Neuro: SENSORIUM/ORIENTATION: Yes oriented to person and Yes oriented to place OTHER: See NIH scoring Skin: COMMON NORMALS: no rashes or lesions noted GENERAL SKIN EXAM: no rashes or lesions noted Course 2 Vital Signs: Vital signs: Vital Signs Temperature 98.1 F 08/24/24 09:34 Pulse Rate 78 08/24/24 10:45 Respiratory Rate 12 08/24/24 10:45 Blood Pressure 134/78 08/24/24 11:00 Pulse Oximetry 97 08/24/24 10:45 Oxygen Delivery Me thod Room Air 08/24/24 09:34 MDM - Neuro Symptoms/Deficit Medical Decision Making Significant deficits with dense loss of function stroke score of 15. After discussion with family and reviewing occasionally Dr. Natalie Gastelum was applied family agreed to treatment. CTA then done shows a significant embolism see CT CTA head and neck report. Discussed with Dr. Waller of the stroke team at [facility] as well as reviewing with Dr. De Jesus and Dr. Estrada here. All in agreement patient be transferred for possible embolectomy. Dr. Waller also thought there was possible plaque rupture in the right carotid which may be a source of embolism. Patient transferred via air EVAC to [facility] as a stroke patient. Dr. Waller receiving Medical Records I reviewed the patient's medical records. Lab Data I reviewed the patient's lab results. 08/24/24 09:30 08/24/24 09:[address] 08/24/24 09:19 IMPRESSION: 1. No evidence of intracranial hemorrhage or mass effect. 2. Dense RIGHT MCA. Recommend further evaluation with CTA Notified Toni Worthington DO at 08/24/2024 9:28 AM. Head/Neck CTA 08/24/24 09:40 IMPRESSION: 1. Distal M1 segment occlusion compatible with findings seen on noncontrast CT. Thrombus in this area extends over approximately 4.6 mm. 2. Decreased flow to the RIGHT insular branches. 3. Less than 50% ICA stenosis bilaterally with moderate calcified atheromatous plaque. 4. LEFT dominant vertebral artery. Tiny hypoplastic RIGHT vertebral artery is patent. 5. 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 Notified Toni Worthington DO at 08/24/2024 10:18 AM. Laboratory Results WBC 9.81 10^3/uL (3.29-11.43) 08/24/24 09:30 RBC 4.81 10^6/uL (3.85-5.65) 08/24/24 09:30 Hgb 12.90 g/dL (11.27-16.99) 08/24/24:30 Hct 40.5 % (36-47) 08/24/24 09:30 MCV 84.2 fl (85-98) L 08/24/24 09:30 MCH 26.8 pg (27-33) L 08/24/24:30 MCHC 31.9 g/dL (30-55) 08/24/24 09:30 RDW 13.2 % (12.1-15.1) 08/24/24 09:30 Plt Count 396 10^3/cmm (157-399) 08/24/24 09:30 MPV 10.2 fL (7.4-10.4) 08/24/24 09:30 Neut % (Auto) 72.4 % 08/24/24 09:30 Lymph % (Auto) 18.7 % 08/24/24 09:30 Blaine % (Auto) 6.1 % 08/24/24 09:30 Eos % (Auto) 1.8 % 08/24/24 09:30 Baso % (Auto) 0.7 % 08/24/24 09:30 Neut # (Auto) 7.10 10^3/uL (1.8-7.7) 08/24/24 09:30 Lymph # (Auto) 1.8 10^3/uL (0.8-4.8) 08/24/24 09:30 Blaine # (Auto) 0.6 10^3/uL (0.2-0.9) 08/24/24 09:30 Eos # (Auto) 0.2 10^3/uL (0.0-0.8) 08/24/24 09:30 Baso # (Auto) 0.1 10^3/uL (0.0-0.1) 08/24/24 09:30 Nucleated RBC % (auto) 0 % 08/24/24 09:30 Nucleated RBCs # 0.0 /100WBC 08/24/24 09:30 PT 13.20 SECONDS (12.1-14.9) 08/24/24 09:30 INR 0.93 (0.8-1.2) 08/24/24 09:30 APTT 23.4 SECONDS (23.9-36.7) L 08/24/24 09:30 Sodium 138 mmol/L (136-145) 08/24/24 09:30 Potassium 4.5 mmol/L (3.5-5.1) 08/24/24 09:30 Chloride 98 mmol/L (98-107) 08/24/24 09:30 Carbon Dioxide 24 mmol/L (22-29) 08/24/24 09:30 Anion Gap 20.5 (5-19) H 08/24/24 09:30 BUN 18 mg/dL (8-23) 08/24/24 09:30 Creatinine 0.8 mg/dL (0.5-0.9) 08/24/24 09:30 GFR Calculation 72.4 mL/min (90-130) L 08/24/24 09:30 Glucose 325 mg/dL (65-115) H 08/24/24 09:30 Calculated Osmolality 300 mOsm/kg (285-295) H 08/24/24 09:30 Calcium 9.2 mg/dL (8.5-10.5) 08/24/24 09:30 Total Bilirubin 0.9 mg/dL (0.15-1.2) 08/24/24 09:30 AST 29 U/L (0-32) 08/24/24 09:30 ALT 15 U/L (0-33) 08/24/24 09:30 Alkaline Phosphatase 83 U/L (35-105) 08/24/24 09:30 Total Protein 6.9 g/dL (6.6-8.7) 08/24/24 09:30 Albumin 3.6 g/dL (3.5-5.2) 08/24/24 09:30 Globulin 3.3 g/dL (1.3-4.6) 08/24/24 09:30 All radiology interpretation(s) finalized by discharge Discharge Plan Discharge Patient Disposition: Xfer Short-Term Hosp Clinical Impression: Ascending aortic aneurysm, Cerebrovascular accident, Embolic stroke involving right middle cerebral artery Condition: Stable Referrals: Jose Salguero MD [Primary Care Provider] - Print Language: Yoruba Coding Level of Care Code ED Major Assembler for Don Quinn
--- NOTE | 2024-08-24 09:32 | PC.PHAR ---
Addendum entered by Yvette Dupont 08/24/24 09:34: not taken this morning Original Note: No morning meds taken-no blood pressure, blood sugar, or insulin
[2024-08-24] MEDS: tenecteplase 50mg Kit (STROKE) 25 MG IVP (09:33)
[2024-08-24 09:36] LABS: Basophils # 0.1 10^3/uL (0.0-0.1); Basophils % 0.7 %; Eosinophils # 0.2 10^3/uL (0.0-0.8); Eosinophils % 1.8 %; Hematocrit 40.5 % (36-47); Lymphocytes # 1.8 10^3/uL (0.8-4.8); Lymphocytes % 18.7 %; Mean Corpuscular HGB Conc 31.9 g/dL (30-55); Mean Corpuscular Hemoglobin 26.8 pg (27-33); Mean Corpuscular Volume 84.2 fl (85-98); Mean Platelet Volume 10.2 fL (7.4-10.4); Monocytes # 0.6 10^3/uL (0.2-0.9); Monocytes % 6.1 %; Neutrophils % 72.4 %; Nucleated Red Blood Cells % 0 %; Platelet Count 396 10^3/cmm (157-399); Red Blood Count 4.81 10^6/uL (3.85-5.65); Red Cell Distribution Width 13.2 % (12.1-15.1); White Blood Count 9.81 10^3/uL (3.29-11.43)
--- NOTE | 2024-08-24 09:40 | CT_ITS ---
WS: [id number] CTA HEAD AND NECK TECHNIQUE: Contrast enhanced CTA of the head and neck with coronal and sagittal reformatted images and maximum intensity projection (MIP) images. NASCET criteria utilized. CLINICAL INFORMATION: acute CVA COMPARISON: None. DLP: 465.[address] scans at [facility] use at least one of these dose optimization techniques: automated exposure control; mA and/or kV adjustment per patient size (includes targeted exams where dose is matched to clinical indication); or iterative reconstruction. FINDINGS: RIGHT: RIGHT common carotid artery is patent. Mild calcified atheromatous plaque RIGHT carotid bulb extending into the ICA. Less than 50% RIGHT ICA stenosis. RIGHT ICA is patent to the skull base. Retropharyngeal course RIGHT cervical ICA. LEFT: LEFT common carotid artery is patent. Moderate calcified atheromatous plaque LEFT carotid bulb extending into the ICA. Less than 50% LEFT ICA stenosis. LEFT ICA is patent to the skull base. INTRACRANIAL CTA: Both ICAs are patent at the skull base. Mild cavernous carotid calcification. Normal vascularity to the SHAWN territory. Hypoplastic LEFT A1 segment. Filling defect in the distal RIGHT M1 segment extending to the trifurcation. Decreased/absent flow RIGHT insular branches. Slightly decreased but persistent vascularity to the RIGHT MCA territory overlying the frontal and parietal cortex. Normal vascularity to the LEFT MCA territory. LEFT dominant vertebral artery. Hypoplastic RIGHT vertebral artery remains patent. Proximal basilar artery is patent. 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 Normal vascularity to the PULP PRESS TENDER territory bilaterally. CT/CT angio headneck* [id number] IMPRESSION: 1. Distal M1 segment occlusion compatible with findings seen on noncontrast CT . Thrombus in this area extends over approximately 4.6 mm. 2. Decreased flow to the RIGHT insular branches. 3. Less than 50% ICA stenosis bilaterally with moderate calcified atheromatous plaque. 4. LEFT dominant vertebral artery. Tiny hypoplastic RIGHT vertebral artery is patent. 5. 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 Notified Toni Worthington DO at 08/24/2024 10:18 AM.
[2024-08-24 09:50] LABS: INR 0.93 (0.8-1.2); Partial Thromboplastin Time 23.4 SECONDS (23.9-36.7)
[2024-08-24 09:54] LABS: Alanine Aminotransferase 15 U/L (0-33); Albumin Level 3.6 g/dL (3.5-5.2); Alkaline Phosphatase 83 U/L (35-105); Blood Urea Nitrogen 18 mg/dL (8-23); Calcium 9.2 mg/dL (8.5-10.5); Carbon Dioxide 24 mmol/L (22-29); Chloride 98 mmol/L (98-107); Creatinine Clr Calc Pharmacy 85.4259; Globulin 3.3 g/dL (1.3-4.6); Glomerular Filtration Rate 72.4 mL/min (90-130); Glucose 325 mg/dL (65-115); Osmolality Calculated 300 mOsm/kg (285-295); Sodium 138 mmol/L (136-145); Total Bilirubin 0.9 mg/dL (0.15-1.2); Total Protein 6.9 g/dL (6.6-8.7)
[2024-08-24 09:56] LABS: Anion Gap 20.5 (5-19); Aspartate Amino Transferase 29 U/L (0-32); Potassium 4.5 mmol/L (3.5-5.1)
[2024-08-24] MEDS: iohexol 350 mg/mL 500 mL Btl (per mL) IV (09:58)
--- NOTE | 2024-08-24 10:16 | PM.SAN ---
Stroke Alert Activation ED Arrival Date: 08/24/24 ED Arrival Time: 09:19 ED Physican at Bedside: 09:19 Last Known Normal/at Baseline: 1-2 hours ago Other Last Known Well Infomation: She got up at 7 AM and went into the bathroom. Sometime after that she fell down and her found her naked on the floor when he got up. Stroke team was activated by EMS when they were 15 minutes out at 0905. She was seen by Dr. Worthington immediately on arrival and observed to have right gaze preference and left hemiplegia. CT scan of the head was unremarkable. She received TNK with a normal blood pressure and we knew she was on no blood thinners. Time of administration 0933. The family thinks that probably her symptoms actually started more close to 8 AM. The patient is not sure. On arrival she had strong gaze preference, dense visual field cut and complete hemiplegia. On repeat exam she still has a tendency for right gaze preference. Speech aprosodia. She still has inferior quadrantanopsia on the left and significant left-sided weakness. CTA reviewed with Dr. Worthington and Dr. De Jesus. She has an unstable lesion in the right carotid artery and she has an unstable M1 distal embolus that probably requires immediate thrombectomy. Her condition is unstable as she could have further emboli. She needs to be shipped by air ambulance to [facility] for further treatment. Family is in agreement and the patient is in agreement. She is not stable to go by ground transfer, which would require 3-1/2 hours. Stroke Alert Activated by: Krystal Myles Stroke Alert Activation Time: 09:05 Stroke MD @ Bedside Time: 09:05 NIH Stroke Scale Time: 09:45 NIH stroke score NIHSS: Level Of Consciousness - 1a: 0 Level Of Consciousness Questions - 1b: Both Correct Level Of Consciousness Commands - 1c: Both Correct Best Gaze - 2: Partial Gaze Palsy Visual Killian - 3: Partial Hemianopia Facial Palsy - 4: Minor Paralysis Motor Arm Right - 5: No Drift Motor Arm Left - 5: Effort Against [place] Motor Leg Right - 6: No Drift Motor Leg Left - 6: Effort Against [place] Limb Ataxia - 7: Absent Sensory - 8: Normal Best Language - 9: No Aphasia Dysarthia - 10: Mild/Moderate Dysarthia Extinction And Inattention - 11: 2 (not recognize her arm your arm not recognize deficit) Score: Total Score: 10 Stroke Alert Data/Treatment Time to CT of Head: 09:19 CT Results Time: 09:28 CT Impression: CT head 1. No evidence of intracranial hemorrhage or mass effect. 2. Dense RIGHT MCA. Recommend further evaluation with CTA Notified Toni Worthington, at 08/24/2024 9:28 AM. Dictated By: Chetan De Jesus MD Stroke Risk Factors: hypertension, obesity and diabetes mellitus tPA Started Date: 08/24/24 tPA Started Time: tPA Started - Time: 09:33 tPA Admin Prior to Arrival: No Patient & Family Educated on: Cause of Stroke, Risk Factors, Treament Plan, Stroke Education Booklet and tPA Risks/Benefits Other Patient & Family Education: I reviewed CTA with the patient and the family recommend transfer for embolectomy if [facility] agrees. Awaiting radiology report looks like M2 clot rmca Other Information: CTA HEAD AND NECK 08/24/[address] De Jesus and with Dr. Worthington. Images reviewed with the family. TECHNIQUE: Contrast enhanced CTA of the head and neck with coronal and sagittal reformatted images and maximum intensity projection (MIP) images. NASCET criteria utilized. CLINICAL INFORMATION: acute CVA COMPARISON: None. DLP: 465.[address] scans at [employer] use at least one of these dose optimization techniques: automated exposure control; mA and/or kV adjustment per patient size (includes targeted exams where dose is matched to clinical indication); or iterative reconstruction. FINDINGS: RIGHT: RIGHT common carotid artery is patent. Mild calcified atheromatous plaque RIGHT carotid bulb extending into the ICA. Less than 50% RIGHT ICA stenosis. RIGHT ICA is patent to the skull base. Retropharyngeal course RIGHT cervical ICA. LEFT: LEFT common carotid artery is patent. Moderate calcified atheromatous plaque LEFT carotid bulb extending into the ICA. Less than 50% LEFT ICA stenosis. LEFT ICA is patent to the skull base. INTRACRANIAL CTA: Both ICAs are patent at the skull base. Mild cavernous carotid calcification. Normal vascularity to the SHAWN territory. Hypoplastic LEFT A1 segment. Filling defect in the distal RIGHT M1 segment extending to the trifurcation. Decreased/absent flow RIGHT insular branches. Slightly decreased but persistent vascularity to the RIGHT MCA territory overlying the frontal and parietal cortex. Normal vascularity to the LEFT MCA territory. LEFT dominant vertebral artery. Hypoplastic RIGHT vertebral artery remains patent. Proximal basilar artery is patent. Persistent LEFT HOME COMFORT ADVISOR. Normal vascularity to the HOME COMFORT ADVISOR territory bilaterally. CT/CT angio headneck* [id number] IMPRESSION: 1. Distal M1 segment occlusion compatible with findings seen on noncontrast CT. Thrombus in this area extends over approximately 4.6 mm. 2. Decreased flow to the RIGHT insular branches. 3. Less than 50% ICA stenosis bilaterally with moderate calcified atheromatous plaque. 4. LEFT dominant vertebral artery. Tiny hypoplastic RIGHT vertebral artery is patent. 5. Persistent LEFT HOME COMFORT ADVISOR. Notified Toni Worthington, at 08/24/2024 10:18 AM. Dictated By: Chetan De Jesus MD Critical Care Time Critical Care Time: 75 - 104 mins A&P Assessment and plan (1) Acute right arterial ischemic stroke, middle cerebral artery (MCA): Acute right middle cerebral artery stroke with forced deviation of the eyes to the right, full visual field cut to the left and left hemiplegia on arrival already resolving after TNK administered with known blood sugar and known blood pressure within limits and patient not on a blood thinner. She received TNK 12 minutes after arrival. She has an unstable lesion in the right carotid that looks like a calcified plaque that is potentially unstable and may generate further emboli. She has an embolus in the right middle cerebral artery that is subject to embolectomy. She has responded to TNK but needs to go on to embolectomy and possible stenting or surgical treatment of her right carotid artery. Discussed with Dr. Worthington who has been in contact with the stroke team at [facility] and we plan to transfer emergently via air ambulance. She is not stable for ground transfer. Family is aware. and son and [id number] were in attendance throughout this process. (2) Hypertension: (3) Diabetes type 2, uncontrolled: (4) Hypothyroidism: PDMP PDMP Reviewed: Not Reviewed Coding Level of Care Code Acute Code for Chg Fwd Diagnoses Acute right arterial ischemic stroke, middle cerebral artery (MCA) I63.511 Hypertension I10 Diabetes type 2, uncontrolled Hypothyroidism E03.9
--- NOTE | 2024-08-24 10:37 | PC.NURSE ---
PATIENT ABLE TO MOVE LEFT ARM AND LEFT LEG, GAZE ALSO CROSSES MIDLINE. PATIENT SPEECH IMPROVED.
== END 2024-08-24 11:11 | disposition short-term general hospital (02) ==
PROVIDERS: Emergency Provider Family Medicine; PCP Family Medicine
DX: I63.411 Cerebral infarction due to embolism of right middle cerebral artery (principal); I71.21 Aneurysm of the ascending aorta, without rupture; I63.9 Cerebral infarction, unspecified; E11.9 Type 2 diabetes mellitus without complications; E78.5 Hyperlipidemia, unspecified; I10 Essential (primary) hypertension
CPT/HCPCS: 70450; 70496; 70498; 80053; 85025; 85610; 85730; 93005; 96374; 99285; 99291; J3101

== ENCOUNTER → 2024-11-03 13:01 | Outpatient (BNVA) | payer BC, SELFPAY | PROVIDERS: PCP Family Medicine; Visit Provider Family Medicine | DX: J02.9 Acute pharyngitis, unspecified (principal) | CPT/HCPCS: 87880 ==

== ENCOUNTER 2024-11-12 11:26 | Outpatient (CLI) | payer BC, SELFPAY ==
[2024-11-12 12:40] LABS: Creatinine Urine, Random 204 mg/dL (28-217); Microalbum Creatinine Ratio Ur 5 mg/dL (0-20); Microalbumin Random Urine 1 ug/dL (0-20)
[2024-11-12 12:45] LABS: Alanine Aminotransferase 41 U/L (0-33); Albumin Level 3.8 g/dL (3.5-5.2); Alkaline Phosphatase 96 U/L (35-105); Aspartate Amino Transferase 29 U/L (0-32); Blood Urea Nitrogen 16 mg/dL (8-23); Calcium 9.5 mg/dL (8.5-10.5); Carbon Dioxide 29 mmol/L (22-29); Chloride 101 mmol/L (98-107); Chol HDL Ratio 2.33 mg/dL (0.0-4.40); Cholesterol 98 mg/dL (0-200); Estmated Average Glucose 197; Globulin 3.4 g/dL (1.3-4.6); Glomerular Filtration Rate 100.6 mL/min (90-130); Glucose 109 mg/dL (65-115); HDL Cholesterol 42 mg/dL (60-100); Hemoglobin A1C 8.5 % (4.0-6.0); LDL Cholesterol Calculated 37 mg/dL (50-129); LDL HDL Ratio 0.88 RATIO (0.00-3.22); Osmolality Calculated 290 mOsm/kg (285-295); Sodium 139 mmol/L (136-145); Thyroid Stimulating Hormone 0.14 uIU/mL (0.27-4.20); Total Bilirubin 0.8 mg/dL (0.15-1.2); Total Protein 7.2 g/dL (6.6-8.7); Triglycerides 93 mg/dL (0-150)
== END 2024-11-12 11:27 | disposition home or self-care (01) ==
PROVIDERS: PCP Family Medicine; Visit Provider Internal Medicine
DX: E03.9 Hypothyroidism, unspecified (principal)
CPT/HCPCS: 36415; 80053; 80061; 82044; 83036; 84439; 84443

== ENCOUNTER 2025-02-13 07:09 | Emergency (ER) | payer BC, SELFPAY ==
[2025-02-13 07:14] VITALS: BP 103/50; PULSE 59; RESP 16; TEMP 36.8; O2SAT 96; BMI 31.3
--- NOTE | 2025-02-13 07:28 | CTR_ITS ---
PROCEDURE INFORMATION: Exam: CT Neck With Contrast Exam date and time: 02/13/2025 8:08 AM Age: 64 years old Clinical indication: Neck pain TECHNIQUE: Imaging protocol: Computed tomography of the neck with contrast. Radiation optimization: All CT scans at this facility use at least one of these dose optimization techniques: automated exposure control; mA and/or kV adjustment per patient size (includes targeted exams where dose is matched to clinical indication); or iterative reconstruction. Contrast material: OMNIPAQUE 350; Contrast volume: 100 ml; Contrast route: INTRAVENOUS (IV); COMPARISON: CT angio headneck* [id number] 08/24/2024 9:41 AM RADIATION DOSE METRICS: Total DLP (mGy-cm): 272.6 FINDINGS: Salivary glands: Normal. Glands are normal in size. Pharynx: Unremarkable. No significant tonsillar enlargement. Larynx: Unremarkable. Epiglottis is normal. Thyroid: Normal. No enlarged or calcified nodules. Trachea: Visualized trachea is unremarkable. Lungs: Unremarkable as visualized. Lymph nodes: Visible cervical lymph nodes are not pathologically enlarged. Bones/joints: Unremarkable. No acute fracture. Soft tissues: Unremarkable. No significant soft tissue swelling. CT/CT neck w con* [id number] IMPRESSION: No acute findings.
--- NOTE | 2025-02-13 07:29 | CTR_ITS ---
PROCEDURE INFORMATION: Exam: CT Head Without Contrast Exam date and time: 02/13/2025 8:08 AM Age: 64 years old Clinical indication: Pain; Headache TECHNIQUE: Imaging protocol: Computed tomography of the head without contrast. Radiation optimization: All CT scans at this facility use at least one of these dose optimization techniques: automated exposure control; mA and/or kV adjustment per patient size (includes targeted exams where dose is matched to clinical indication); or iterative reconstruction. COMPARISON: CT angio headneck* [id number] 08/24/2024 9:41 AM RADIATION DOSE METRICS: Total DLP (mGy-cm): 1144.8 FINDINGS: Brain: No hemorrhage. Mild periventricular white matter prominent suggest atherosclerotic encephalopathic changes. No mass effect. Cerebral ventricles: No ventriculomegaly. Paranasal sinuses: Visualized sinuses are unremarkable. No fluid levels. Mastoid air cells: Visualized mastoid air cells are well aerated. Bones: Unremarkable. No acute fracture. Soft tissues: Unremarkable. CT/CT head wo con* [id number] IMPRESSION: No acute intracranial abnormality.
[2025-02-13 07:46] LABS: Hematocrit 41.8 % (36-47); Hemoglobin 13.10 g/dL (11.27-16.99); Mean Corpuscular HGB Conc 31.3 g/dL (30-55); Mean Corpuscular Hemoglobin 26.3 pg (27-33); Mean Corpuscular Volume 83.9 fl (85-98); Nucleated Red Blood Cells % 0 %; Platelet Count 310 10^3/cmm (157-399); Red Blood Count 4.98 10^6/uL (3.85-5.65); White Blood Count 6.36 10^3/uL (3.29-11.43)
[2025-02-13 08:02] LABS: Alanine Aminotransferase 18 U/L (0-33); Albumin Level 4.0 g/dL (3.5-5.2); Alkaline Phosphatase 83 U/L (35-105); Anion Gap 12.4 (5-19); Aspartate Amino Transferase 20 U/L (0-32); Blood Urea Nitrogen 18 mg/dL (8-23); Calcium 8.9 mg/dL (8.5-10.5); Carbon Dioxide 28 mmol/L (22-29); Chloride 103 mmol/L (98-107); Creatinine Clr Calc Pharmacy 79.3804; Globulin 2.7 g/dL (1.3-4.6); Glucose 159 mg/dL (65-115); Osmolality Calculated 295 mOsm/kg (285-295); Potassium 3.4 mmol/L (3.5-5.1); Sodium 140 mmol/L (136-145); Total Protein 6.7 g/dL (6.6-8.7)
--- NOTE | 2025-02-13 08:03 | W.ED.NECK ---
HPI - Neck Pain/Injury General: Chief Complaint: Neck Pain/Injury Stated Complaint: neck pain and Headachs Time Seen by Provider: 02/13/25 07:15 History of Present Illness: Chief complaint is neck pain. The patient states Friday morning she woke up and she thought she just slept wrong. She states she had a slight crick in the right side of her neck. No headache. No fall or trauma. No fever. No runny nose sore throat or congestion. No earache. No chest pain or shortness of breath. No abdominal pain. No vomiting or diarrhea. No numbness weakness or tingling in her arms or legs that is new. No loss of bowel or bladder control. Related Data Home Medications ?Medication ?Instructions ?Recorded ?Confirmed aspirin 81 mg tablet,delayed 81 mg PO DAILY 01/04/20 02/13/25 release metoprolol succinate 50 mg 50 mg PO DAILY 08/24/24 02/13/25 tablet,extended release 24 hr rosuvastatin 40 mg tablet 40 mg PO DAILY 08/24/24 02/13/25 Previous Rx's ?Medication ?Instructions ?Recorded FreeStyle Monika 2 [place] (flash #1 ea 06/06/23 glucose scanning reader) tramadol 50 mg tablet 50 mg PO Q6H PRN pain 7 days #28 03/13/24 tabs citalopram 40 mg tablet 20 mg (1/2 x 40 mg) PO DAILY 08/26/24 mental health #90 tabs levothyroxine 100 mcg tablet 100 mcg PO QAM #30 tabs 09/16/24 (Synthroid) FreeStyle Monika 2 Sensor (flash #6 kits 10/21/24 glucose sensor) alprazolam 0.25 mg tablet (Xanax) 0.25 mg PO BID PRN anxiety #30 tabs 11/08/24 insulin glargine 100 unit/mL (3 30 unit (0.3 mL) SUBCUT DAILY #45 12/30/24 mL) subcutaneous pen (Lantus mL Solostar U-100 Insulin) tirzepatide 15 mg/0.5 mL See Rx Instructions .Route 01/10/25 subcutaneous pen injector .COMPLEX #2 mL (Mounjaro) pen needle, diabetic 32 gauge x #100 ea 01/28/25 (TechLITE Pen Needle) hydrocodone 5 mg-acetaminophen 325 1 tab PO Q8H PRN pain #14 tabs 02/13/25 mg tablet methocarbamol 500 mg tablet 500 mg PO Q8H PRN pain #30 tabs 02/13/25 Allergies Allergy/AdvReac Type Severity Reaction Status Date / Time Penicillins Allergy Unknown Verified 01/10/25 12:48 Sulfa (Sulfonamide Allergy Unknown Verified 01/10/25 12:48 Antibiotics) ciprofloxacin AdvReac Unknown Verified 01/10/25 12:48 ON LICENSE OF [facility] ED PFSH: Medical History (Updated 02/13/25 @ 09:14 by Adolfo Woodward MD) Anxiety and depression Diabetes type 2, uncontrolled Ascending aortic aneurysm Hypoxia Hiatal hernia Dyslipidemia Hypothyroidism Hypertension Surgical History H/O: hysterectomy History of appendectomy Family History Other CAD (coronary artery disease) Diabetes Hypertension Social History Smoking and tobacco/nicotine status: former use of tobacco/nicotine (quit 2009) Alcohol intake: never Substance/Drug Use: never Housing: House Physical Exam Narrative: EXAM NARRATIVE: Alert moderate distress has pain with looking to the right or extension of the neck. Pupils equal reactive. Full range ocular motion. No evident visual field deficit. No facial droop. No drift in her arms or legs. Intact sensation. Intact cerebellar function. No facial tenderness. No visible swelling of the neck. She has muscular spasm on the right paraspinal. Heart regular rhythm. Lung sounds are clear. Abdomen soft nontender. Extremities warm well-perfused. No calf tenderness or pitting edema. No rash on exposed areas. Speech is clear. Shows ability to reason. Course Vital Signs: Vital signs: Vital Signs Temperature 98.2 F 02/13/25 07:14 Pulse Rate 51 L 02/13/25 10:10 Respiratory Rate 16 02/13/25 07:14 Blood Pressure 116/70 02/13/25 10:10 Pulse Oximetry 94 02/13/25 10:10 Oxygen Delivery Me thod Room Air 02/13/25 07:14 MDM - Neck Pain/Injury Medical Decision Making Patient presents complaining of gradual onset of right-sided neck pain. She states she has no headaches except for it will shoot up from the occiput area into the posterior scalp at times. She states it hurts to move. She states that it started gradually. It hurts especially if she tries to extend her neck more or look to the right. She denies fall or trauma. Denies any recent hospitalization or IV access or immunosuppression or fever or recent illness to suggest risk for epidural abscess discitis or osteomyelitis. She is diabetic. She denies any new neurologic symptoms. She has had a stroke earlier this year. She is off of Plavix but does take aspirin. Patient denies any new numbness weakness or tingling her arms or legs and denies loss of bowel or bladder control. Patient clearly has reproducible symptoms with any attempted movement. She states she did not have any headache at all but today she will get some sharp shooting pains intermittently in the occiput area on the right. Not suggestive of sentinel leak. Herniated disc, muscular spasm, other radiculopathy, broad differential. She denies any known cancer. I advised patient regarding broad differential including osteomyelitis, epidural abscess, discitis, disc herniation, soft tissue infection, among many others however these would be unlikely by exam and history. I ordered CBC CMP sed rate CRP CT of the head and CT soft tissues of the neck after informed discussion with the patient. I discussed the patient pain control and treatment options. She states her sugars do go up with steroids but she think she can manage this and we will give her a shot of Decadron 10 mg IV after informed discussion of balance risk and benefit and needing to monitor her sugars closely. I ordered Toradol 15 mg IV and Thor 10 mg p.o. She has had opiates in the past without problem. She had some old leftover Zanaflex and trazodone that she took at home but she states these are more than 5 years old and she thinks they are and they did not seem to help at all. I advised her not to use these any longer and will prescribe Robaxin instead and a short course of hydrocodone after informed discussion regarding risk of hydrocodone and alternative treatment options as well as risk of Robaxin and risk of fall, sedation and caution with combining the 2 and using these as alternative treatments. Advised risk and benefit of NSAIDs. Advised limits of ED evaluation and signs of progression or worsening to watch and return for to indicate emergent MRI. I do not find evidence of emergent need for MRI at this time and patient agrees with this after informed discussion. Patient's white count is 6.36. ESR is 2. Creatinine is 0.8. C-reactive protein is not elevated. CT head and soft tissues neck negative for acute process per radiology. Prescription for Robaxin and Thor given to patient and will discharge home in improved condition. I advised patient limits of ED evaluation and signs symptoms of worsening or progression to watch and return for and she agrees with plan to perform discussion. Lab Data 02/13/25 07:37 02/13/25 07:[address] 02/13/25 07:28 IMPRESSION: No acute findings. Head CT 02/13/25 07:29 IMPRESSION: No acute intracranial abnormality. Laboratory Results WBC 6.36 10^3/uL (3.29-11.43) 02/13/25 07:37 RBC 4.98 10^6/uL (3.85-5.65) 02/13/25 07:37 Hgb 13.10 g/dL (11.27-16.99) 02/13/25 07:37 Hct 41.8 % (36-47) 02/13/25 07:37 MCV 83.9 fl (85-98) L 02/13/25 07:37 MCH 26.3 pg (27-33) L 02/13/25 07:37 MCHC 31.3 g/dL (30-55) 02/13/25 07:37 RDW 15.3 % (12.1-15.1) H 02/13/25 07:37 Plt Count 310 10^3/cmm (157-399) 02/13/25 07:37 MPV 10.8 fL (7.4-10.4) H 02/13/25 07:37 Neut % (Auto) 62.4 % 02/13/25 07:37 Lymph % (Auto) 24.2 % 02/13/25 07:37 Price % (Auto) 7.2 % 02/13/25 07:37 Eos % (Auto) 4.9 % 02/13/25 07:37 Baso % (Auto) 1.1 % 02/13/25 07:37 Neut # (Auto) 3.97 10^3/uL (1.8-7.7) 02/13/25 07:37 Lymph # (Auto) 1.5 10^3/uL (0.8-4.8) 02/13/25 07:37 Price # (Auto) 0.5 10^3/uL (0.2-0.9) 02/13/25 07:37 Eos # (Auto) 0.3 10^3/uL (0.0-0.8) 02/13/25 07:37 Baso # (Auto) 0.1 10^3/uL (0.0-0.1) 02/13/25 07:37 Nucleated RBC % (auto) 0 % 02/13/25 07:37 Nucleated RBCs # 0.0 /100WBC 02/13/25 07:37 ESR 2 mm/hr (0-15) 02/13/25 07:37 Sodium 140 mmol/L (136-145) 02/13/25 07:37 Potassium 3.4 mmol/L (3.5-5.1) L 02/13/25 07:37 Chloride 103 mmol/L (98-107) 02/13/25 07:37 Carbon Dioxide 28 mmol/L (22-29) 02/13/25 07:37 Anion Gap 12.4 (5-19) 02/13/25 07:37 BUN 18 mg/dL (8-23) 02/13/25 07:37 Creatinine 0.8 mg/dL (0.5-0.9) 02/13/25 07:37 GFR Calculation 72.2 mL/min (90-130) L 02/13/25 07:37 Glucose 159 mg/dL (65-115) H 02/13/25 07:37 Calculated Osmolality 295 mOsm/kg (285-295) 02/13/25 07:37 Calcium 8.9 mg/dL (8.5-10.5) 02/13/25 07:37 Total Bilirubin 0.7 mg/dL (0.15-1.2) 02/13/25 07:37 AST 20 U/L (0-32) 02/13/25 07:37 ALT 18 U/L (0-33) 02/13/25 07:37 Alkaline Phosphatase 83 U/L (35-105) 02/13/25 07:37 C-Reactive Protein 3.1 mg/L (0.0-4.9) 02/13/25 07:37 Total Protein 6.7 g/dL (6.6-8.7) 02/13/25 07:37 Albumin 4.0 g/dL (3.5-5.2) 02/13/25 07:37 Globulin 2.7 g/dL (1.3-4.6) 02/13/25 07:37 All radiology interpretation(s) finalized by discharge Discharge Plan Discharge Patient Disposition: Home Clinical Impression: Acute neck pain Condition: Stable Prescriptions: New hydrocodone-acetaminophen 5-325 mg tablet 1 tab PO Q8H PRN (Reason: pain) Qty: 14 0RF Rx Instructions: may take up to 2 tabs every 8 hours for pain methocarbamol 500 mg tablet 500 mg PO Q8H PRN (Reason: pain) Qty: 30 0RF Rx Instructions: may take up to 3 tab every 8 hours as needed for pain No Action tramadol 50 mg tablet 50 mg PO Q6H PRN (Reason: pain) 7 Days Qty: 28 0RF levothyroxine [Synthroid] 100 mcg tablet 100 mcg PO QAM Qty: 30 3RF Rx Instructions: doesn't take on Sundays (DME) FreeStyle Monika 2 [place] Misc See Rx Instructions .ROUTE .COMPLEX Qty: 1 0RF Dose Instruction: USE DIRECTED Rx Instructions: USE DIRECTED citalopram 40 mg tablet 20 mg PO DAILY Qty: 90 0RF (DME) FreeStyle Monika 2 Sensor Kit See Rx Instructions .ROUTE .COMPLEX Qty: 6 1RF Dose Instruction: CHANGE every 14 DAYS Rx Instructions: CHANGE every 14 DAYS alprazolam [Xanax] 0.25 mg tablet 0.25 mg PO BID PRN (Reason: anxiety) Qty: 30 3RF insulin glargine [Lantus Solostar U-100 Insulin] 100 unit/mL (3 mL) insulin pen 30 unit SUBCUT DAILY Qty: 45 0RF Mounjaro 15 mg/0.5 mL pen injector See Rx Instructions .ROUTE .COMPLEX Qty: 2 3RF Dose Instruction: inject 15mg (0.5ml) SUBCUTANEOUSLY EVERY 7 DAYS Rx Instructions: inject 15mg (0.5ml) SUBCUTANEOUSLY EVERY 7 DAYS (DME) pen needle, diabetic [TechLITE Pen Needle] 32 gauge x 5/32 needle See Rx Instructions .ROUTE .COMPLEX Qty: 100 3RF Dose Instruction: DIRECTED Rx Instructions: DIRECTED aspirin 81 mg tablet,delayed release (DR/EC) 81 mg PO DAILY metoprolol succinate 50 mg tablet extended release 24 hr 50 mg PO DAILY rosuvastatin 40 mg tablet 40 mg PO DAILY Discharge Orders: Discharge ED (Routine); Ordered 02/13/25 Ordered By: Adolfo Woodward Referrals: Jose Salguero MD [Primary Care Provider, Family Practice] Patient Instructions: Opioid Safety, Pain Management, Patient Portal & Leslie Instructions Activity Restrictions/Additional Instructions: Return immediately if fever, concerning headache, loss of bowel or bladder control, weakness in your arms or legs, getting worse, chest pain or shortness of breath, any worse or concerns. Caution with combining opiates and muscle relaxants and both can lead to sedation and increased risk of fall and confusion. Do not combine with other sedative or opiate medications such as tramadol or trazodone or Zanaflex. Recheck with your doctor this week. Call for an appointment early this week. No driving. Print Language: Irish Coding Level of Care Code ED Wireless Team Member for Don Quinn
[2025-02-13] MEDS: iohexol 350 mg/mL 500 mL Btl (per mL) IV (08:10)
[2025-02-13] MEDS: HYDROcodone-acetaminophen 10-325 mg Tablet 1 TAB PO (08:22)
[2025-02-13 10:10] VITALS: BP 116/70; PULSE 51; O2SAT 94
== END 2025-02-13 10:10 | disposition home or self-care (01) ==
PROVIDERS: Emergency Provider Emergency Medicine; PCP Family Medicine
DX: M54.2 Cervicalgia (principal); Z79.4 Long term (current) use of insulin; Z79.82 Long term (current) use of aspirin; Z87.891 Personal history of nicotine dependence; E78.5 Hyperlipidemia, unspecified; E11.9 Type 2 diabetes mellitus without complications; I10 Essential (primary) hypertension
CPT/HCPCS: 70450; 70491; 80053; 85025; 85651; 86140; 96374; 96375; 99285; J1100; J1885; J9999

== ENCOUNTER 2025-02-17 09:35 | Outpatient (CLI) | payer BC, SELFPAY ==
[2025-02-17 10:52] LABS: Estmated Average Glucose 154; Hemoglobin A1C 7.0 % (4.0-6.0)
[2025-02-17 10:59] LABS: Creatinine Urine, Random 213 mg/dL (28-217); Microalbum Creatinine Ratio Ur 28 mg/dL (0-20)
[2025-02-17 11:02] LABS: Alanine Aminotransferase 19 U/L (0-33); Albumin Level 4.2 g/dL (3.5-5.2); Alkaline Phosphatase 112 U/L (35-105); Anion Gap 16.7 (5-19); Aspartate Amino Transferase 16 U/L (0-32); Blood Urea Nitrogen 13 mg/dL (8-23); Calcium 9.5 mg/dL (8.5-10.5); Carbon Dioxide 25 mmol/L (22-29); Chloride 103 mmol/L (98-107); Cholesterol 110 mg/dL (0-200); Free T4 Free Thyroxine 1.06 ng/dL (0.82-1.77); Globulin 3.7 g/dL (1.3-4.6); Glucose 126 mg/dL (65-115); HDL Cholesterol 48 mg/dL (60-100); Osmolality Calculated 294 mOsm/kg (285-295); Potassium 3.7 mmol/L (3.5-5.1); Sodium 141 mmol/L (136-145); Thyroid Stimulating Hormone 4.04 uIU/mL (0.27-4.20); Total Protein 7.9 g/dL (6.6-8.7); Triglycerides 122 mg/dL (0-150)
== END 2025-02-17 09:36 | disposition home or self-care (01) ==
PROVIDERS: PCP Family Medicine; Visit Provider Internal Medicine
DX: E78.5 Hyperlipidemia, unspecified (principal); E03.9 Hypothyroidism, unspecified
CPT/HCPCS: 80053; 80061; 82044; 83036; 84439; 84443

== ENCOUNTER 2025-03-09 15:06 | Outpatient (CLI) | payer BC, SELFPAY | END 2025-03-09 15:07 | disposition home or self-care (01) | LOC: SLEEP 15:08 | PROVIDERS: PCP Family Medicine; Visit Provider Internal Medicine Pulmonary Disease | DX: G47.33 Obstructive sleep apnea (adult) (pediatric) (principal) | CPT/HCPCS: G0399 ==

== ENCOUNTER 2025-05-11 12:36 | Outpatient (CLI) | payer BC, SELFPAY ==
--- NOTE | 2025-05-11 12:41 | MM_ITS ---
WS: [id number] BILATERAL 3D TOMOSYNTHESIS DIGITAL SCREENING MAMMOGRAPHY WITH CAD CLINICAL INFORMATION: SCREENING HISTORY: Screening mammogram. No current complaints. COMPARISON: 2023 TECHNIQUE: Bilateral CC and MLO views. FINDINGS: Scattered fibroglandular densities bilaterally. No suspicious focal mass, asymmetry, calcifications, or architectural distortion. No evidence of malignancy. Punctate and lucent centered classifications. Coarse calcifications LEFT breast. MM/MM scr tomosynthesis [id number] IMPRESSION: DENSITY: There are scattered areas of fibroglandular density. BI-RADS: 2 - Benign. FOLLOW UP: 1 Year Follow-up Recommend return to annual screening mammography.
== END 2025-05-11 12:37 | disposition home or self-care (01) ==
LOC: RAD 12:37
PROVIDERS: PCP Family Medicine; Visit Provider Family Medicine
DX: Z12.31 Encounter for screening mammogram for malignant neoplasm of breast (principal); R92.323 Mammographic fibroglandular density, bilateral breasts; R92.1 Mammographic calcification found on diagnostic imaging of breast
CPT/HCPCS: 77063; 77067

== ENCOUNTER 2025-05-27 10:45 | Outpatient (CLI) | payer BC, SELFPAY ==
[2025-05-27 11:48] LABS: Estmated Average Glucose 140; Hemoglobin A1C 6.5 % (4.0-6.0)
[2025-05-27 11:56] LABS: Creatinine Urine, Random 335 mg/dL (28-217)
[2025-05-27 11:57] LABS: Microalbum Creatinine Ratio Ur 116 mg/dL (0-20)
[2025-05-27 12:14] LABS: Alanine Aminotransferase 24 U/L (0-33); Albumin Level 4.6 g/dL (3.5-5.2); Alkaline Phosphatase 102 U/L (35-105); Anion Gap 13.4 (5-19); Aspartate Amino Transferase 25 U/L (0-32); Blood Urea Nitrogen 14 mg/dL (8-23); Calcium 9.5 mg/dL (8.5-10.5); Carbon Dioxide 25 mmol/L (22-29); Chloride 105 mmol/L (98-107); Cholesterol 114 mg/dL (0-200); Free T4 Free Thyroxine 1.23 ng/dL (0.82-1.77); Globulin 3.0 g/dL (1.3-4.6); Glucose 136 mg/dL (65-115); HDL Cholesterol 46 mg/dL (60-100); Osmolality Calculated 293 mOsm/kg (285-295); Potassium 3.4 mmol/L (3.5-5.1); Sodium 140 mmol/L (136-145); Thyroid Stimulating Hormone 2.18 uIU/mL (0.27-4.20); Total Protein 7.6 g/dL (6.6-8.7); Triglycerides 118 mg/dL (0-150)
== END 2025-05-27 10:46 | disposition home or self-care (01) ==
PROVIDERS: PCP Family Medicine; Visit Provider Internal Medicine
DX: E03.9 Hypothyroidism, unspecified (principal)
CPT/HCPCS: 80053; 80061; 82044; 83036; 84439; 84443